=== PATIENT | female | born 1960 | race Caucasian/White ===

== ENCOUNTER → 2016-05-27 | Outpatient (CLI) | payer MEDICAID ==
[~2016-05-27] MED LIST: /ALEN70TA OR; /RISE35TA; BACL10TA2; BACL10TA2 OR; BACL10TA2 PO; CALCTAB22 OR; CIPR500T19; CIPRODEX OS; CYAN1000VL INJ; DIPH2.5L OR; FERR225T PO; FERR324T2 PO; FLAG250T; FLAX100012 PO; LOMO2.5T PO; LYRI75CA OR; MAGNESIUM OXIDE; OPAN10TA16 OR; PENTASA; SLEEP AID PO; SOMA250T; SOMA250T PO; SOMA350T OR; SOMA350T PO; TYLETAB3; TYLETAB3 OR; ULTR300T OR; VICO5TAB OR; VIT D 2000 OR; VITAD1000T PO; VITAMIN B 12 SQ; VITAMIN D 3; ZANA4CAP PO; ZICAM; [UNRECOGNIZED DRUG - CODE] PO; nasacort; omega PO; vit b; vit b12; vitamin b12 SC
--- NOTE | 2016-05-28 00:09 | ECWPNPC ---
PATIENT NAME: MATTY PERSON : 1960 GENDER: FEMALE VISIT DATE: 05/27/2016 DISCHARGE DATE: 05/27/16 1215 VISIT LOCKED DATE TIME: PHYSICIAN: COLIN GRAF RESOURCE: COLIN GRAF REASON FOR APPOINTMENT 1. BACK HISTORY OF PRESENT ILLNESS HISTORY OF PRESENT ILLNESS: PAIN THE PATIENT DESCRIBES THE PAIN... FALL RISK SCREENING: SCREENING :NO FALLS IN THE PAST YEAR TODAY'S VISIT: NOTES: FIRST VISIT BACK TO CLINIC SINCE 11/09. RATES PAIN TODAY 7/10. WORST AREAS TODAY ARE RIGHT WRIST AND NECK AREA. REPORTS PAIN MEDS ARE GENERALLY HELPFUL. HAS BEEN ABLE TO WALK BETTER AND HAS BEEN MORE ACTIVE. HAS HAD NO RECENT FALLS.. CURRENT MEDICATIONS TAKING VITAMIN B-12 1000 MCG INJECTION INJECTION IM TWICE A MONTH TAKING LOMOTIL 2.5-0.025 MG TABLET 4 TABLETS ORALLY TWICE DAILY NEEDED TAKING CALCIUM 600 MG TABLET 1 TABLET ORALLY DAILY TAKING TYLENOL/CODEINE #4 300-60 MG TABLET 1 TABLET NEEDED ORALLY EVERY 4 HRS PRN PAIN MDD=6 TAKING TIZANIDINE HCL 4 MG TABLET 1 TABLET ORALLY EVERY 6 HRS TAKING SOMA 350 MG TABLET 1 TABLET NEEDED ORALLY THREE TIMES DAILY MDD=3 TAKING BACLOFEN 10 MG TABLET 2 TABLET WITH FOOD OR MILK ORALLY 2 IN A.M. , 1 MID MORNING, 1 MID AFTERNOON AND 2 IN P.M. TAKING OXYCODONE HCL 15 MG TABLET 1 TABLET ORALLY EVERY 4 HOURS NEEDED, MAX DAILY DOSE 6 NOT-TAKING GABAPENTIN 100 MG CAPSULE 1 CAP ORALLY BEFORE BEDTIME NOT-TAKING FOSAMAX 70 MG TABLET 1 TABLET ORALLY WEEKLY NOT-TAKING VITAMIN D 2000 UNIT TABLET 1 TABLET ORALLY DAILY NOT-TAKING OXYCODONE HCL 15 MG TABLET 1 TABLET ORALLY EVERY 6 HRS PRN PAIN MDD=4 NOT-TAKING OXYCODONE HCL 15 MG TABLET 1 TABLET ORALLY EVERY 6 HRS PRN PAIN MDD=4 NOT-TAKING OXYCODONE HCL 15 MG TABLET 1 TABLET ORALLY Q 6 HRS PRN PAIN MDD=4 MEDICATION LIST REVIEWED AND RECONCILED WITH THE PATIENT PAST MEDICAL HISTORY CHRONES, SHORTENING OF THE BOWEL ALLERGIES REMICADE: ANAPHYLACTIC SHOCK MP 6: LIVER SHUTS DOWN LATEX: PULLS YOUR SKIN OFF PREDNISONE: SWELLING NEURONTIN: HAIR FALLING OUT PENTASA: HEADACHE GABAPENTIN: HAIR FELL OUT: SIDE EFFECTS SOCIAL HISTORY GENERAL: TOBACCO USE ARE YOU A:NONSMOKER LEARNING BARRIERS / SPECIAL NEEDS ORIENTED TO PLAN OF CARE: PATIENT, PAIN MANAGEMENT PATIENT, ORIENTED TO PLAN OF CARE: PATIENT, PAIN MANAGEMENT PATIENT. NEW PATIENT PAIN DIARY TODAY'S VISITNOTES FROM 0-10, WHAT LEVEL IS YOUR PAIN TODAY?0 PAIN CLINIC PFS, CLERGY, PUBLIC HEALTH REFERRALS PFS REFERRAL NEEDED?NO CLERGY REFERRAL NEEDED?NO PUBLIC HEALTH REFERRAL NEEDED?NO WAS THE PROVIDER NOTIFIED OF ANY PERTINENT INFO?NO PFS REFERRAL NEEDED?NO CLERGY REFERRAL NEEDED?NO PUBLIC HEALTH REFERRAL NEEDED?NO WAS THE PROVIDER NOTIFIED OF ANY PERTINENT INFO?NO REVIEW OF SYSTEMS CONSTITUTIONAL: ANY CHANGE IN YOUR MEDICAL CONDITION? YES NOT TAKING GABAPENTIN--MADE HER HAIR FALL OUT . CHILLS NO . FEVER NO . INFECTION: DO YOU HAVE NEW INFECTIONS? NO . DO YOU HAVE HISTORY OF MRSA? NO . MUSCULOSKELETAL: ANY NEW PATTERNS OF PAIN OR NUMBNESS? NO . GASTROENTEROLOGY: GENERAL WEIGHT STABLE OR HADS GAINED. SAW GASTRO YESTERDAY. . ANY NEW CHANGE IN BOWEL CONTROL? NO . GENITOURINARY: ANY NEW CHANGE IN BLADDER CONTROL? NO . IS THERE A CHANCE YOU COULD BE ? NO . HEMATOLOGY/LYMPH: DO YOU TAKE ANY BLOOD THINNERS? (FOR EXAMPLE- COUMADIN, PLAVIX, AGGRENOX, PLATEL, PRADAXA, OR XARELTO) NO . WHEN WAS YOUR LAST DOSE? DATE: TIME: . NEUROLOGY: HAVE YOU FALLEN IN THE PAST 6 MONTHS? NO . ANY NEW EXTREMITY NUMBNESS OR WEAKNESS? NO . CARDIOLOGY: DO YOU HAVE A PACEMAKER OR DEFIBRILLATOR? NO . RESPIRATORY: HAVE YOU BEEN SICK IN THE PAST WEEK? NO . FEVER NO . FLU LIKE SYMPTOMS? NO . COUGH NO . INTEGUMENTARY: DO YOU HAVE ANY RASHES OR OPEN SORES? NO . ALLERGIC/IMMUNO: ARE YOU ALLERGIC TO SHELLFISH OR IV DYE? NO . ANY NEW ALLERGIES? NO . PSYCHIATRIC: DO YOU HAVE THOUGHTS OF HURTING YOURSELF OR SOMEONE ELSE? NO . ARE YOU ABUSED, NEGLECTED, OR IN AN UNSAFE ENVIRONMENT? NO . ENDOCRINOLOGY: ARE YOU DIABETIC? NO . OTHER: DO YOU NEED ANY PRESCRIPTIONS? NO . IF YES, PLEASE LIST: ____ . ANY NEW PROBLEMS WITH YOUR MEDICATIONS? NO . WHEN DID YOU LAST EAT? ____ . WHEN DID YOU LAST DRINK? ____ . WHAT DID YOU LAST DRINK? ____ . NAME OF PERSON DRIVING YOU HOME? ____ . DO YOU HAVE ANY OTHER QUESTIONS OR CONCERNS YES STOPPED GABAPENTIN DUE TO IT MAKING HER HAIR FALL OUT. . REVIEWED BY: PROVIDER: COLIN NULL . VITAL SIGNS WT 125.8 LBS, HT 66 IN, BMI 20.30 INDEX, BP 146/89 MM HG, HR 85 /MIN, RR 16 /MIN, TEMP 97.1 F, OXYGEN SAT % 96%, NA INITIALS SC 11:27. EXAMINATION GENERAL EXAMINATION: GENERAL APPEARANCE:COLOR PALE. PSYCHALERT , ORIENTED X 3 , APPROPRIATE MOOD AND AFFECT . LUNGS:CLEAR TO AUSCULTATION BILATERALLY - HYPERVENTILATES EASILY. HEART:HEART RATE REGULAR. MUSCULOSKELETAL:TRIGGER POINTS AND TIGHT FIBROUS BANDS OVER CERVICAL PARASPINOUS MUSCLES AND OVER SCAPULA, RIGHT > LEFT. TENDER WITH PALPATION OVER POSTERIOR RIGHT AC JOINT.RESTRICTION IN ROM WITH NECK AND RIGHT SHOULDER MOVEMENT. JOINTS:RIGHT , WRIST TENDER, EDEMATOUS . ASSESSMENTS BILATERAL KNEE PAIN - M25.561 (PRIMARY) LUMBAR POST-LAMINECTOMY SYNDROME - M96.1 OTHER CERVICAL DISC DISPLACEMENT AT C5-C6 LEVEL - M50.222 CHRONIC PRESCRIPTION OPIATE USE - Z79.891 TREATMENT BILATERAL KNEE PAIN NOTES: UTOX TODAY. TO SEE PCP IN FUTURE. CLINICAL NOTES: ISTOP REGISTRY REVIEWED AND DEMNOSTRATES COMPLLIANCE. BRINGS IN MEDICATIONS WHICH IS APPROPRIATE FOR WHAT WAS DISPENSED. RECENT URINE TOXICOLOGY REVIEWED. NO UNAUTHORIZED MEDICATIONS. NO ILLICIT SUBSTANCES AND PRESCRIBED MEDICATIONS WERE PRESENT. PROCEDURE CODES FA211 ESTABILISHED PATIENT [facility] CHARGE DISPOSITION & COMMUNICATION FOLLOW UP [address] KIMBLE (INSURANCE ISSUES) ELECTRONICALLY SIGNED BY NICO RODRÍGUEZ ON 05/27/2016 AT 01:48 PM EST DISCLAIMER : THIS IS A VISIT SUMMARY EXTRACTED FROM THE [email or web address] CHART. IT IS NOT A COPY OF THE [email or web address] PROGRESS NOTE. MTDD
== END ==
LOC: M PAIN 10:40
PROVIDERS: ATTEND Nurse Practitioner Family
DX: Z09 Encounter for follow-up examination after completed treatment for conditions other than malignant neoplasm (principal); G89.29 Other chronic pain; M25.561 Pain in right knee; M96.1 Postlaminectomy syndrome, not elsewhere classified; M50.222 Other cervical disc displacement at C5-C6 level; K50.90 Crohn's disease, unspecified, without complications; Z88.8 Allergy status to other drugs, medicaments and biological substances; Z91.040 Latex allergy status; Z79.891 Long term (current) use of opiate analgesic; Z79.899 Other long term (current) drug therapy

== ENCOUNTER → 2016-08-26 | Outpatient (CLI) | payer MEDICAID ==
--- NOTE | 2016-09-12 00:08 | ECWPNPC ---
PATIENT NAME: MATTY PERSON : 1960 GENDER: FEMALE VISIT DATE: 08/26/2016 DISCHARGE DATE: 08/26/16 1525 VISIT LOCKED DATE TIME: PHYSICIAN: COLIN GRAF RESOURCE: COLIN GRAF REASON FOR APPOINTMENT 1. BACK HISTORY OF PRESENT ILLNESS HISTORY OF PRESENT ILLNESS: PAIN THE PATIENT DESCRIBES THE PAIN... FALL RISK SCREENING: SCREENING :NO FALLS IN THE PAST YEAR GENERAL: HPI RATES PAIN TODAY 5.5/10. IS HAVING SOME PAIN ON LEFT SIDE OF THE NECK. RAINY DAYS AND HUMID WEATHER AFFECT THE JOINTS. ANKLES AND FEET ACHY BUT IMPROVED. CHRON'S IS GENERALLY QUIET AND WEIGHT IS STABLE. REPORTS NO ADVERSE EFFECTS WITH MEDS.. CURRENT MEDICATIONS TAKING VITAMIN B-12 1000 MCG INJECTION INJECTION IM ONCE A MONTH TAKING LOMOTIL 2.5-0.025 MG TABLET 8 TABLETS ORALLY TWICE DAILY NEEDED TAKING CALCIUM 600 MG TABLET 1 TABLET ORALLY DAILY TAKING TYLENOL WITH CODEINE #4 300-60 MG TABLET 1 TABLET NEEDED ORALLY EVERY 4 HRS PRN PAIN MDD=6 TAKING TIZANIDINE HCL 4 MG TABLET 1 TABLET ORALLY EVERY 6 HRS TAKING BACLOFEN 10 MG TABLET 2 TABLET WITH FOOD OR MILK ORALLY 2 IN A.M. , 1 MID MORNING, 1 MID AFTERNOON AND 2 IN P.M. TAKING SOMA 350 MG TABLET 1 TABLET NEEDED ORALLY THREE TIMES DAILY MDD=3 TAKING OXYCODONE HCL 15 MG TABLET 1 TABLET ORALLY EVERY 4 HOURS NEEDED, MAX DAILY DOSE 6 TAKING VITAMIN D (ERGOCALCIFEROL) 47616 UNIT CAPSULE 1 CAPSULE ORALLY ONCE A WEEK TAKING FERROUS SULFATE 1 TABLET ORALLY ONCE A DAY NOT-TAKING GABAPENTIN 100 MG CAPSULE 1 CAP ORALLY BEFORE BEDTIME NOT-TAKING FOSAMAX 70 MG TABLET 1 TABLET ORALLY WEEKLY NOT-TAKING VITAMIN D 2000 UNIT TABLET 1 TABLET ORALLY DAILY NOT-TAKING OXYCODONE HCL 15 MG TABLET 1 TABLET ORALLY EVERY 6 HRS PRN PAIN MDD=4 NOT-TAKING OXYCODONE HCL 15 MG TABLET 1 TABLET ORALLY EVERY 6 HRS PRN PAIN MDD=4 NOT-TAKING OXYCODONE HCL 15 MG TABLET 1 TABLET ORALLY Q 6 HRS PRN PAIN MDD=4 MEDICATION LIST REVIEWED AND RECONCILED WITH THE PATIENT PAST MEDICAL HISTORY CHRONES, SHORTENING OF THE BOWEL CHRONIC PAIN- SEES [facility] PAIN MANAGEMENT ALLERGIES REMICADE: ANAPHYLACTIC SHOCK MP 6: LIVER SHUTS DOWN LATEX: PULLS YOUR SKIN OFF PREDNISONE: SWELLING NEURONTIN: HAIR FALLING OUT PENTASA: HEADACHE GABAPENTIN: HAIR FELL OUT: SIDE EFFECTS SURGICAL HISTORY ABDOMINAL SURGERIES (5) BACK SURGERY KNEE SURGERY (LUMP REMOVED -LEFT KNEE) TONSILLECTOMY SOCIAL HISTORY GENERAL: TOBACCO USE ARE YOU A:NONSMOKER CONGREGATION [id number] DENOMINATIONAL LEARNING BARRIERS / SPECIAL NEEDS ORIENTED TO PLAN OF CARE: PATIENT, PAIN MANAGEMENT PATIENT, ORIENTED TO PLAN OF CARE: PATIENT, PAIN MANAGEMENT PATIENT. NEW PATIENT PAIN DIARY TODAY'S VISITNOTES FROM 0-10, WHAT LEVEL IS YOUR PAIN TODAY?0 PAIN CLINIC PFS, CLERGY, PUBLIC HEALTH REFERRALS PFS REFERRAL NEEDED?NO CLERGY REFERRAL NEEDED?NO PUBLIC HEALTH REFERRAL NEEDED?NO WAS THE PROVIDER NOTIFIED OF ANY PERTINENT INFO?NO PFS REFERRAL NEEDED?NO CLERGY REFERRAL NEEDED?NO PUBLIC HEALTH REFERRAL NEEDED?NO WAS THE PROVIDER NOTIFIED OF ANY PERTINENT INFO?NO ADVANCE DIRECTIVES HEALTH CARE PROXY?YES NAME OF HCP MOE MAK CONTACT # FOR HCP [phone] DO YOU HAVE A COPY WITH YOU? NO - [facility] COPY IN TO HOSPITAL DO YOU HAVE A DNR?NO WOULD YOU LIKE MORE INFORMATION?YES LIVING WILL?NO WOULD YOU LIKE MORE INFORMATION?NO POWER OF INSURANCE COLLECTOR?YES NAME OF POA? SAME HCP HOSPITALIZATION/MAJOR DIAGNOSTIC PROCEDURE SURGERIES REVIEW OF SYSTEMS CONSTITUTIONAL: ANY CHANGE IN YOUR MEDICAL CONDITION? NO . CHILLS NO . FEVER NO . INFECTION: DO YOU HAVE NEW INFECTIONS? NO . DO YOU HAVE HISTORY OF MRSA? NO . MUSCULOSKELETAL: ANY NEW PATTERNS OF PAIN OR NUMBNESS? NO . GASTROENTEROLOGY: ANY NEW CHANGE IN BOWEL CONTROL? INTERMITTANT DIARRHEA - CROHNS DISEASE . GENITOURINARY: ANY NEW CHANGE IN BLADDER CONTROL? NO . IS THERE A CHANCE YOU COULD BE ? NO . HEMATOLOGY/LYMPH: DO YOU TAKE ANY BLOOD THINNERS? (FOR EXAMPLE- COUMADIN, PLAVIX, AGGRENOX, PLATEL, PRADAXA, OR XARELTO) NO . WHEN WAS YOUR LAST DOSE? DATE: TIME: . NEUROLOGY: HAVE YOU FALLEN IN THE PAST 6 MONTHS? NO . ANY NEW EXTREMITY NUMBNESS OR WEAKNESS? NO . CARDIOLOGY: DO YOU HAVE A PACEMAKER OR DEFIBRILLATOR? NO . RESPIRATORY: HAVE YOU BEEN SICK IN THE PAST WEEK? NO . FEVER NO . FLU LIKE SYMPTOMS? NO . COUGH NO . INTEGUMENTARY: DO YOU HAVE ANY RASHES OR OPEN SORES? NO . ALLERGIC/IMMUNO: ARE YOU ALLERGIC TO SHELLFISH OR IV DYE? NO . ANY NEW ALLERGIES? NO . PSYCHIATRIC: DO YOU HAVE THOUGHTS OF HURTING YOURSELF OR SOMEONE ELSE? NO . ARE YOU ABUSED, NEGLECTED, OR IN AN UNSAFE ENVIRONMENT? NO . ENDOCRINOLOGY: ARE YOU DIABETIC? NO . OTHER: DO YOU NEED ANY PRESCRIPTIONS? NO . IF YES, PLEASE LIST: ____ . ANY NEW PROBLEMS WITH YOUR MEDICATIONS? NO . WHEN DID YOU LAST EAT? ____ . WHEN DID YOU LAST DRINK? ____ . WHAT DID YOU LAST DRINK? ____ . NAME OF PERSON DRIVING YOU HOME? ____ . DO YOU HAVE ANY OTHER QUESTIONS OR CONCERNS NO . REVIEWED BY: PROVIDER: COLIN NULL . VITAL SIGNS WT 134.8 LBS, HT 66 IN, BMI 21.75 INDEX, BP 155/79 MM HG, HR 85 /MIN, RR 16 /MIN, TEMP 96.9 F, OXYGEN SAT % 98%, NA INITIALS TL 1338, REVIEWED BY: LS. EXAMINATION GENERAL EXAMINATION: GENERAL APPEARANCE:COLOR PALE. PSYCHALERT , ORIENTED X 3 , APPROPRIATE MOOD AND AFFECT . LUNGS:CLEAR TO AUSCULTATION BILATERALLY - HYPERVENTILATES EASILY. HEART:HEART RATE REGULAR. MUSCULOSKELETAL:TRIGGER POINTS AND TIGHT FIBROUS BANDS OVER CERVICAL PARASPINOUS MUSCLES AND OVER SCAPULA, RIGHT > LEFT. TENDER WITH PALPATION OVER POSTERIOR RIGHT AC JOINT.RESTRICTION IN ROM WITH NECK AND RIGHT SHOULDER MOVEMENT. RISES EASILY TO STANDING POSITION. POSTURE UPRIGHT. GAIT SLOW, NON ANTALGIC. STILL WITH DIFFICULTY WITH BALANCE. ASSESSMENTS LUMBAR POST-LAMINECTOMY SYNDROME - M96.1 (PRIMARY) OTHER CERVICAL DISC DISPLACEMENT AT C5-C6 LEVEL - M50.222 CHRONIC PRESCRIPTION OPIATE USE - Z79.891 TREATMENT LUMBAR POST-LAMINECTOMY SYNDROME NOTES: CONTINUE CURRENT MEDS. MUST BRING TO EVERY VISIT. CLINICAL NOTES: ISTOP REGISTRY REVIEWED AND DEMNOSTRATES COMPLLIANCE. DID NOT BRINGS IN MEDICATIONS. RECENT URINE TOXICOLOGY REVIEWED. NO UNAUTHORIZED MEDICATIONS. NO ILLICIT SUBSTANCES AND PRESCRIBED MEDICATIONS WERE PRESENT. PROCEDURE CODES FA211 ESTABILISHED PATIENT [facility] CHARGE DISPOSITION & COMMUNICATION FOLLOW UP 3 MONTHS (REASON: JOINT PAIN, BACK PAIN) ELECTRONICALLY SIGNED BY NICO RODRÍGUEZ ON 09/11/2016 AT 03:50 PM EDT DISCLAIMER : THIS IS A VISIT SUMMARY EXTRACTED FROM THE [employer] CHART. IT IS NOT A COPY OF THE [employer] PROGRESS NOTE. GRAHAM
== END ==
LOC: M PAIN 13:20
PROVIDERS: ATTEND Anesthesiology
DX: M96.1 Postlaminectomy syndrome, not elsewhere classified (principal); M50.222 Other cervical disc displacement at C5-C6 level; Z79.891 Long term (current) use of opiate analgesic; Z79.2 Long term (current) use of antibiotics; Z79.899 Other long term (current) drug therapy; Z88.8 Allergy status to other drugs, medicaments and biological substances; Z88.6 Allergy status to analgesic agent

== ENCOUNTER → 2016-12-09 | Outpatient (CLI) | payer MEDICAID, OTHER ==
--- NOTE | 2016-12-13 02:32 | ECWPNPC ---
PATIENT NAME: MATTY PERSON : 1960 GENDER: FEMALE VISIT DATE: 12/09/2016 DISCHARGE DATE: 12/09/16 1145 VISIT LOCKED DATE TIME: PHYSICIAN: COLIN GRAF RESOURCE: COLIN GRAF REASON FOR APPOINTMENT 1. JOINT PAIN, BACK PAIN HISTORY OF PRESENT ILLNESS FALL RISK SCREENING: SCREENING :NO FALLS IN THE PAST YEAR PAIN SCREENING: PATIENT HAS A COMPLAINT OF ACUTE OR CHRONIC PAIN :YES TODAY'S VISIT: NOTES: RATES PAIN TODAY 6-7/10. DESCRIBES PAIN ACHING, BURNING, SHARP SORE STABBING. HAS BEEN NOTING BURNING PAIN RADIATING INTO 1ST AND 2 ND FINGERS BOTH HANDS . THIS WILL AWAKEN HER FROM SLEEP. . CURRENT MEDICATIONS TAKING VITAMIN B-12 1000 MCG INJECTION INJECTION IM ONCE A MONTH TAKING LOMOTIL 2.5-0.025 MG TABLET 8 TABLETS ORALLY TWICE DAILY NEEDED TAKING CALCIUM 600 MG TABLET 1 TABLET ORALLY DAILY TAKING VITAMIN D (ERGOCALCIFEROL) 48859 UNIT CAPSULE 1 CAPSULE ORALLY ONCE A WEEK TAKING FERROUS SULFATE 1 TABLET ORALLY ONCE A DAY TAKING TYLENOL WITH CODEINE #4 300-60 MG TABLET 1 TABLET NEEDED ORALLY EVERY 4 HRS PRN PAIN MDD=6 TAKING BACLOFEN 10 MG TABLET 2 TABLET WITH FOOD OR MILK ORALLY 2 IN A.M. , 1 MID MORNING, 1 MID AFTERNOON AND 2 IN P.M. TAKING TIZANIDINE HCL 4 MG TABLET 1 TABLET ORALLY EVERY 6 HRS TAKING SOMA 350 MG TABLET 1 TABLET NEEDED ORALLY THREE TIMES DAILY MDD=3 TAKING OXYCODONE HCL 15 MG TABLET 1 TABLET ORALLY EVERY 4 HOURS NEEDED, MAX DAILY DOSE 6 NOT-TAKING GABAPENTIN 100 MG CAPSULE 1 CAP ORALLY BEFORE BEDTIME NOT-TAKING FOSAMAX 70 MG TABLET 1 TABLET ORALLY WEEKLY NOT-TAKING VITAMIN D 2000 UNIT TABLET 1 TABLET ORALLY DAILY NOT-TAKING OXYCODONE HCL 15 MG TABLET 1 TABLET ORALLY EVERY 6 HRS PRN PAIN MDD=4 NOT-TAKING OXYCODONE HCL 15 MG TABLET 1 TABLET ORALLY EVERY 6 HRS PRN PAIN MDD=4 NOT-TAKING OXYCODONE HCL 15 MG TABLET 1 TABLET ORALLY Q 6 HRS PRN PAIN MDD=4 MEDICATION LIST REVIEWED AND RECONCILED WITH THE PATIENT PAST MEDICAL HISTORY CHRONES, SHORTENING OF THE BOWEL CHRONIC PAIN- SEES [facility] PAIN MANAGEMENT ALLERGIES REMICADE: ANAPHYLACTIC SHOCK MP 6: LIVER SHUTS DOWN LATEX: PULLS YOUR SKIN OFF PREDNISONE: SWELLING NEURONTIN: HAIR FALLING OUT PENTASA: HEADACHE GABAPENTIN: HAIR FELL OUT: SIDE EFFECTS SOCIAL HISTORY GENERAL: TOBACCO USE ARE YOU A:NONSMOKER CAFFEINE CAFFEINE USE?YES HOW OFTEN AND HOW MUCH? 1-2 CUPS PER DAY ORTHODOXY [id number] MU-ISM LEARNING BARRIERS / SPECIAL NEEDS ORIENTED TO PLAN OF CARE: PATIENT, PAIN MANAGEMENT PATIENT, ORIENTED TO PLAN OF CARE: PATIENT, PAIN MANAGEMENT PATIENT. NEW PATIENT PAIN DIARY TODAY'S VISITNOTES FROM 0-10, WHAT LEVEL IS YOUR PAIN TODAY?0 PAIN CLINIC PFS, CLERGY, PUBLIC HEALTH REFERRALS PFS REFERRAL NEEDED?NO CLERGY REFERRAL NEEDED?NO PUBLIC HEALTH REFERRAL NEEDED?NO WAS THE PROVIDER NOTIFIED OF ANY PERTINENT INFO?YES HAS THE PATIENT BEEN EDUCATED REGARDING HIS/HER PLAN OF CARE?YES HAS THE PATIENT BEEN EDUCATED REGARDING PAIN, THE RISK FOR PAIN, THE IMPORTANCE OF EFFECTIVE PAIN MANAGEMENT, AND THE PAIN ASSESSMENT PROCESS?YES REVIEWED BY: EDGAR. ADVANCE DIRECTIVES HEALTH CARE PROXY?YES NAME OF HCP MOE MAK CONTACT # FOR HCP [phone] DO YOU HAVE A COPY WITH YOU? NO - [facility] HAS ALREAD[facility] BROUGHT COPY IN TO HOSPITAL DO YOU HAVE A DNR?NO WOULD YOU LIKE MORE INFORMATION?YES LIVING WILL?NO WOULD YOU LIKE MORE INFORMATION?NO POWER OF WINDOWS SYSTEMS ADMINISTRATOR?YES NAME OF POA? SAME HCP REVIEW OF SYSTEMS REVIEWED BY: PROVIDER: . CONSTITUTIONAL: ANY CHANGE IN YOUR MEDICAL CONDITION? NO . CHILLS NO . FEVER NO . INFECTION: DO YOU HAVE NEW INFECTIONS? NO . DO YOU HAVE HISTORY OF MRSA? NO . MUSCULOSKELETAL: ANY NEW PATTERNS OF PAIN OR NUMBNESS? YES, LEFT AND RIGHT MIDDLE KNUCKLES ARE THROBBING AND BURNING, STARTED ABOUT 2 MONTHS AGO. . SYTEMIC LUPUS NO . GASTROENTEROLOGY: GENERAL CROHN'S CURRENT QUIET - NO BLOOD IN STOOL . ANY NEW CHANGE IN BOWEL CONTROL? NO . BARRETTS ESOPHAGUS NO . CIRRHOSIS NO . HEPATITIS NO . LIVER FAILURE NO . ACID REFLUX NO . UNEXPLAINED WEIGHT LOSS NO . GENITOURINARY: ANY NEW CHANGE IN BLADDER CONTROL? NO . IS THERE A CHANCE YOU COULD BE ? NO . HEMATOLOGY/LYMPH: DO YOU TAKE ANY BLOOD THINNERS? (FOR EXAMPLE- COUMADIN, PLAVIX, AGGRENOX, PLATEL, PRADAXA, OR XARELTO) NO . WHEN WAS YOUR LAST DOSE? DATE: TIME: . LOW PLATELET COUNT NO . SICKLE CELL DISEASE NO . VON WILLIEBRANDS NO . FACTOR V LEIDEN NO . THALLASEMIA NO . ANEMIA NO . EASY BRUISING NO . NEUROLOGY: HAVE YOU FALLEN IN THE PAST 6 MONTHS? NO . ANY NEW EXTREMITY NUMBNESS OR WEAKNESS? NO . HEAD INJURY NO . DEMENTIA NO . CEREBRAL PALSY NO . MULTIPLE SCLEROSIS NO . DIZZINESS NO . HEADACHE NO . STROKES NO . VERTIGO NO . CARDIOLOGY: DO YOU HAVE A PACEMAKER OR DEFIBRILLATOR? NO . ANGINA NO . HEART ATTACK NO . HEART SURGERY NO . CONGESTIVE HEART FAILURE/FLUID OVERLOAD NO . CHEST PAIN NO . HIGH BLOOD PRESSURE NO . IRREGULAR HEART BEAT NO . RESPIRATORY: HAVE YOU BEEN SICK IN THE PAST WEEK? NO . FEVER NO . FLU LIKE SYMPTOMS? NO . CPAP NO . BYPAP NO . ASTHMA NO . EMPHYSEMA NO . CHRONIC LUNG DISEASES NO . SHORTNESS OF BREATH ON EXERTION NO . COUGH NO . SNORING NO . INTEGUMENTARY: DO YOU HAVE ANY RASHES OR OPEN SORES? NO . ALLERGIC/IMMUNO: ARE YOU ALLERGIC TO SHELLFISH OR IV DYE? NO . ANY NEW ALLERGIES? NO . PSYCHIATRIC: DO YOU HAVE THOUGHTS OF HURTING YOURSELF OR SOMEONE ELSE? NO . ARE YOU ABUSED, NEGLECTED, OR IN AN UNSAFE ENVIRONMENT? NO . ENDOCRINOLOGY: ARE YOU DIABETIC? NO . THYROID DISORDER NO . OTHER: DO YOU NEED ANY PRESCRIPTIONS? NO . IF YES, PLEASE LIST: ____ . ANY NEW PROBLEMS WITH YOUR MEDICATIONS? NO . WHEN DID YOU LAST EAT? ____ . WHEN DID YOU LAST DRINK? ____ . WHAT DID YOU LAST DRINK? ____ . NAME OF PERSON DRIVING YOU HOME? ____ . DO YOU HAVE ANY OTHER QUESTIONS OR CONCERNS NO . VITAL SIGNS WT 127 LBS, HT 66 IN, BMI 20.50 INDEX, BP 127/65 MM HG, HR 90 /MIN, RR 16 /MIN, TEMP 98.0 F, OXYGEN SAT % 100%, SAFE IN ENV? (Y/N) Y, NA INITIALS IL 11:19, REVIEWED BY: EDGAR. EXAMINATION GENERAL EXAMINATION: GENERAL APPEARANCE:COLOR PINK, SKIN WARM AND DRY. PSYCHALERT , ORIENTED X 3 , APPROPRIATE MOOD AND AFFECT . LUNGS:CLEAR TO AUSCULTATION BILATERALLY - HYPERVENTILATES EASILY. HEART:HEART RATE REGULAR. MUSCULOSKELETAL:TRIGGER POINTS AND TIGHT FIBROUS BANDS OVER CERVICAL PARASPINOUS MUSCLES AND OVER SCAPULA, RIGHT > LEFT. TENDER WITH PALPATION OVER POSTERIOR RIGHT AC JOINT.RESTRICTION IN ROM WITH NECK AND RIGHT SHOULDER MOVEMENT. RISES EASILY TO STANDING POSITION. POSTURE UPRIGHT. GAIT SLOW, NON ANTALGIC. STILL WITH DIFFICULTY WITH BALANCE. ASSESSMENTS LUMBAR POST-LAMINECTOMY SYNDROME - M96.1 (PRIMARY) OTHER CERVICAL DISC DISPLACEMENT AT C5-C6 LEVEL - M50.222 CHRONIC PRESCRIPTION OPIATE USE - Z79.891 TREATMENT LUMBAR POST-LAMINECTOMY SYNDROME REFILL TYLENOL WITH CODEINE #4 TABLET, 300-60 MG, 1 TABLET NEEDED, ORALLY, EVERY 6 HRS PRN PAIN MDD=4, 30 DAY(S), 120, REFILLS 4 REFILL OXYCODONE HCL TABLET, 20 MG, 1 TABLET, ORALLY, EVERY 4 HOURS NEEDED, MAX DAILY DOSE 5, 30 DAY(S), 150, REFILLS 0 REFILL SOMA TABLET, 350 MG, 1 TABLET NEEDED, ORALLY, FOUR TIMES DAILY, 30 DAY(S), 120, REFILLS 2 NOTES: KEEP ACTIVE POSSIBLE. WILL TYLENOL WITH CODEINE AND INCREASE OXYCODONE AND SOMA. PT UNDERSTANDS SHE WILL HAVE TO PAY OUT OF POCKET FOR THIS. PROCEDURE CODES FA211 ESTABILISHED PATIENT [facility] CHARGE DISPOSITION & COMMUNICATION FOLLOW UP 3 MONTHS (REASON: NECK/BACK PAIN) ELECTRONICALLY SIGNED BY NICO RODRÍGUEZ ON 12/12/2016 AT 05:54 PM EDT DISCLAIMER : THIS IS A VISIT SUMMARY EXTRACTED FROM THE [employer] CHART. IT IS NOT A COPY OF THE [employer] PROGRESS NOTE. GRAHAM
== END ==
LOC: M PAIN 10:00
PROVIDERS: ATTEND Nurse Practitioner Family
DX: M96.1 Postlaminectomy syndrome, not elsewhere classified (principal); M50.222 Other cervical disc displacement at C5-C6 level; Z79.891 Long term (current) use of opiate analgesic; Z79.899 Other long term (current) drug therapy; Z88.8 Allergy status to other drugs, medicaments and biological substances

== ENCOUNTER → 2017-04-06 | Outpatient (CLI) | payer OTHER, MEDICAID | LOC: M PAIN 10:15 | DX: M96.1 Postlaminectomy syndrome, not elsewhere classified (principal); M50.222 Other cervical disc displacement at C5-C6 level; K50.90 Crohn's disease, unspecified, without complications; Z79.891 Long term (current) use of opiate analgesic; Z79.899 Other long term (current) drug therapy; Z88.8 Allergy status to other drugs, medicaments and biological substances; Z91.040 Latex allergy status | CPT/HCPCS: G0463 ==

== ENCOUNTER → 2017-07-05 | Outpatient (CLI) | payer OTHER, MEDICAID | LOC: M PAIN 10:30 | DX: M96.1 Postlaminectomy syndrome, not elsewhere classified (principal); M25.561 Pain in right knee; Z79.891 Long term (current) use of opiate analgesic; Z79.899 Other long term (current) drug therapy; Z88.8 Allergy status to other drugs, medicaments and biological substances; Z91.040 Latex allergy status | CPT/HCPCS: G0463 ==

== ENCOUNTER → 2017-08-08 | Outpatient (CLI) | payer OTHER, MEDICAID | LOC: M RAD 14:20 | DX: M79.605 Pain in left leg (principal) | CPT/HCPCS: 73590 ==

== ENCOUNTER → 2017-10-12 | Outpatient (CLI) | payer OTHER, MEDICAID | LOC: M PAIN 10:45 | DX: M79.605 Pain in left leg (principal); M50.222 Other cervical disc displacement at C5-C6 level; M79.1 Myalgia; Z79.891 Long term (current) use of opiate analgesic; Z79.899 Other long term (current) drug therapy; Z88.8 Allergy status to other drugs, medicaments and biological substances; Z91.040 Latex allergy status; Z87.19 Personal history of other diseases of the digestive system | CPT/HCPCS: G0463 ==

== ENCOUNTER → 2017-11-01 | Outpatient (CLI) | payer OTHER ==
[~2017-11-01] MED LIST changes: -/ALEN70TA OR; -/RISE35TA; -BACL10TA2; -BACL10TA2 OR; -BACL10TA2 PO; -CALCTAB22 OR; -CIPR500T19; -CIPRODEX OS; -CYAN1000VL INJ; -DIPH2.5L OR; -FERR225T PO; -FERR324T2 PO; -FLAG250T; -FLAX100012 PO; +ISOVUE-370 76% 100ML VIAL (Q9967) As Ordered; -LOMO2.5T PO; -LYRI75CA OR; -MAGNESIUM OXIDE; -OPAN10TA16 OR; -PENTASA; -SLEEP AID PO; -SOMA250T; -SOMA250T PO; -SOMA350T OR; -SOMA350T PO; -TYLETAB3; -TYLETAB3 OR; -ULTR300T OR; -VICO5TAB OR; -VIT D 2000 OR; -VITAD1000T PO; -VITAMIN B 12 SQ; -VITAMIN D 3; -ZANA4CAP PO; -ZICAM; -[UNRECOGNIZED DRUG - CODE] PO; -nasacort; -omega PO; -vit b; -vit b12; -vitamin b12 SC
== END ==
LOC: M RAD 13:57
DX: M79.605 Pain in left leg (principal); M85.872 Other specified disorders of bone density and structure, left ankle and foot
CPT/HCPCS: Q9967

== ENCOUNTER → 2018-01-12 | Outpatient (CLI) | payer OTHER, MEDICAID | LOC: M PAIN 09:30 | DX: M25.561 Pain in right knee (principal); M96.1 Postlaminectomy syndrome, not elsewhere classified; Z79.899 Other long term (current) drug therapy; Z88.8 Allergy status to other drugs, medicaments and biological substances; Z91.040 Latex allergy status; Z87.19 Personal history of other diseases of the digestive system | CPT/HCPCS: G0463 ==

== ENCOUNTER → 2018-06-22 | Outpatient (CLI) | payer OTHER, MEDICAID ==
[~2018-06-22] MED LIST changes: +/ALEN70TA OR; +/RISE35TA; +BACL10TA2; +BACL10TA2 OR; +BACL10TA2 PO; +CALCTAB22 OR; +CIPR500T19; +CIPRODEX OS; +CYAN1000VL INJ; +DIPH2.5L OR; +FERR225T PO; +FERR324T2 PO; +FLAG250T; +FLAX100012 PO; -ISOVUE-370 76% 100ML VIAL (Q9967) As Ordered; +LOMO2.5T PO; +LYRI75CA OR; +MAGNESIUM OXIDE; +OPAN10TA16 OR; +PENTASA; +SLEEP AID PO; +SOMA250T; +SOMA250T PO; +SOMA350T OR; +SOMA350T PO; +TYLETAB3; +TYLETAB3 OR; +ULTR300T OR; +VICO5TAB OR; +VIT D 2000 OR; +VITAD1000T PO; +VITAMIN B 12 SQ; +VITAMIN D 3; +ZANA4CAP PO; +ZICAM; +[UNRECOGNIZED DRUG - CODE] PO; +nasacort; +omega PO; +vit b; +vit b12; +vitamin b12 SC
--- NOTE | 2018-07-04 01:55 | ECWPNPC ---
PATIENT NAME: MATTY PEROSN : 1960 GENDER: FEMALE VISIT DATE: 06/22/2018 DISCHARGE DATE: 06/22/18 1122 VISIT LOCKED DATE TIME: PHYSICIAN: VINI LOO PHYSICIAN PAGER NO: INACTIVE RESOURCE: VINI LOO REASON FOR APPOINTMENT 1. NECK/JOINT PAIN HISTORY OF PRESENT ILLNESS HISTORY OF PRESENT ILLNESS: HERE FOR F/U AND MEDICINE MANAGEMENT OF CHRONIC GENERALIZED BACK PAIN WITH HISTORY OF CHRONHS ARTHROPATHY.RATING PAIN VAS 5/10.FINDS CURRENT CHRONIC PAIN MEDICATION EFFECRIVE AT REDUCING PAIN AND KEEPING HER COMFORTABLE.DENIES SIDE EFFECTS. PAIN THE PATIENT DESCRIBES THE PAIN... FALL RISK SCREENING: SCREENING :NO FALLS REPORTED IN THE LAST YEAR CURRENT MEDICATIONS TAKING VITAMIN B-12 1000 MCG INJECTION INJECTION IM ONCE A MONTH, NOTES: 06/08/18 TAKING LOMOTIL 2.5-0.025 MG TABLET 8 TABLETS ORALLY TWICE DAILY NEEDED, NOTES: HASN'T TAKEN ANY LATELY TAKING VITAMIN D (ERGOCALCIFEROL) 69629 UNIT CAPSULE 1 CAPSULE ORALLY ONCE A WEEK TAKING TIZANIDINE HCL 4 MG TABLET 1 TABLET ORALLY EVERY 6 HRS TAKING TYLENOL WITH CODEINE #4 300-60 MG TABLET 1 TABLET NEEDED ORALLY EVERY 6 HRS PRN PAIN MDD=4 TAKING SOMA 350 MG TABLET 1 TABLET NEEDED ORALLY FOUR TIMES DAILY TAKING OXYCODONE HCL 20 MG TABLET 1 TABLET ORALLY EVERY 4 HOURS NEEDED, MAX DAILY DOSE 5 TAKING BACLOFEN 20 MG TABLET DIRECTED ORALLY 1 AT AM, 1/2 MID AM, 1/2 MID AFTERNOON, 1 AT BEDTIME TAKING MULTI COMPLETE - CAPSULE DIRECTED ORALLY NOT-TAKING CALCIUM 600 MG TABLET 1 TABLET ORALLY DAILY NOT-TAKING FERROUS SULFATE 1 TABLET ORALLY ONCE A DAY MEDICATION LIST REVIEWED AND RECONCILED WITH THE PATIENT PAST MEDICAL HISTORY CHRONES, SHORTENING OF THE BOWEL CHRONIC PAIN- SEES [facility] PAIN MANAGEMENT ALLERGIES REMICADE: ANAPHYLACTIC SHOCK MP 6: LIVER SHUTS DOWN LATEX: PULLS YOUR SKIN OFF PREDNISONE: SWELLING NEURONTIN: HAIR FALLING OUT PENTASA: HEADACHE GABAPENTIN: HAIR FELL OUT - SIDE EFFECTS - ONSET DATE 06/22/2018 SURGICAL HISTORY ABDOMINAL SURGERIES (5) BACK SURGERY KNEE SURGERY (LUMP REMOVED -LEFT KNEE) TONSILLECTOMY FAMILY HISTORY FATHER: , DIAGNOSED WITH CANCER MOTHER: , CANCER 3 BROTHER(S) , 3 SISTER(S) - HEALTHY. FATHER - OAT CELL CARCINOMA, MOTHER - LIVER CANCER, SISTER - OF [place]. SOCIAL HISTORY GENERAL: TOBACCO USE ARE YOU A: NONSMOKER . LATEX QUESTIONNAIRE LATEX ALLERGY : HAVE YOU EVER DEVELOPED ANY TYPE OF REACTION AFTER HANDLING LATEX PRODUCTS SUCH RUBBER GLOVES, CONDOMS, DIAPHRAGMS, BALLOONS, SOCKS, OR UNDERWEAR?YES LATEX ALLERGY : HAVE YOU EVER DEVELOPED ANY TYPE OF REACTION DURING OR AFTER DENTAL APPOINTMENT, VAGINAL/RECTAL EXAMINATION, SURGICAL PROCEDURE, OR ANY OTHER EXPOSURE?NO LATEX RISK : HAVE YOU EVER HAD ANY DIFFICULTY BREATHING OR HIVES AFTER EATING OR HANDLING ANY FRUITS, OR VEGETABLES; SUCH KIWI, BANANAS, STONE FRUITS, OR CHESTNUTSNO LATEX RISK : DO YOU HAVE A PREVIOUS PERSONAL HISTORY OF MORE THAN NINE SURGERIES, SPINA BIFIDA, OR REPEATED CATHERTIZATIONS? NO LATEX RISK : ARE YOU FREQUENTLY EXPOSED TO LATEX PRODUCTS IN YOUR OCCUPATION?NO DATE ASKED : 06/22/2018 ALCOHOL SCREENING DID YOU HAVE A DRINK CONTAINING ALCOHOL IN THE PAST YEAR?NO POINTS0 INTERPRETATIONNEGATIVE RECREATIONAL DRUG USE DRUG USE?NO CAFFEINE CAFFEINE USE?YES HOW OFTEN AND HOW MUCH? 1-2 CUPS PER DAY CHEONDOISM [id number] LATTER DAY LANGUAGE LANGUAGES SPOKEN:[place] LEARNING BARRIERS / SPECIAL NEEDS ORIENTED TO PLAN OF CARE: PATIENT, PAIN MANAGEMENT PATIENT, ORIENTED TO PLAN OF CARE: PATIENT, PAIN MANAGEMENT PATIENT. DIET: REGULAR. EXERCISE: WALKS, , DAILY. NEW PATIENT PAIN DIARY FROM 0-10, WHAT LEVEL IS YOUR PAIN TODAY?5.5 PAIN CLINIC PFS, CLERGY, PUBLIC HEALTH REFERRALS PFS REFERRAL NEEDED?NO CLERGY REFERRAL NEEDED?NO PUBLIC HEALTH REFERRAL NEEDED?NO WAS THE PROVIDER NOTIFIED OF ANY PERTINENT INFO?YES HAS THE PATIENT BEEN EDUCATED REGARDING HIS/HER PLAN OF CARE?YES HAS THE PATIENT BEEN EDUCATED REGARDING PAIN, THE RISK FOR PAIN, THE IMPORTANCE OF EFFECTIVE PAIN MANAGEMENT, AND THE PAIN ASSESSMENT PROCESS?YES ADVANCE DIRECTIVE HEALTH CARE PROXY? YES, NAME OF HCP MOE MAK, CONTACT # FOR HCP [phone], DO YOU HAVE A COPY WITH YOU? NO - STATES HAS ALREADY BROUGHT COPY IN TO HOSPITAL, DO YOU HAVE A DNR? NO, WOULD YOU LIKE MORE INFORMATION? YES, LIVING WILL? NO, WOULD YOU LIKE MORE INFORMATION? 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 SAME HCP. REVIEWED WITH PATIENT 01/12/18 [id number] JSREVIEWED WITH PT 3/29/19 1028 BV. HOSPITALIZATION/MAJOR DIAGNOSTIC PROCEDURE SURGERIES REVIEW OF SYSTEMS REVIEWED BY: PROVIDER: VINI NULL . CONSTITUTIONAL: ANY CHANGE IN YOUR MEDICAL CONDITION? NO . CHILLS NO . FEVER NO . INFECTION: DO YOU HAVE NEW INFECTIONS? NO . DO YOU HAVE HISTORY OF MRSA? NO . MUSCULOSKELETAL: ANY NEW PATTERNS OF PAIN OR NUMBNESS? YES, PT COMPAINS OF INCREASING DIFFICULTY TURNING HEAD SIDE TO SIDE OVER THE PAST 4-5 MONTHS . GASTROENTEROLOGY: ANY NEW CHANGE IN BOWEL CONTROL? YES, PT COMPLAINS OF INCREASING FREQUENCY OF LOOSE BOWELS OVER THE PAST 1-2 WEEKS. . GENITOURINARY: ANY NEW CHANGE IN BLADDER CONTROL? NO . IS THERE A CHANCE YOU COULD BE ? NO . HEMATOLOGY/LYMPH: DO YOU TAKE ANY BLOOD THINNERS? (FOR EXAMPLE- COUMADIN, PLAVIX, AGGRENOX, PLATEL, PRADAXA, OR XARELTO) NO . WHEN WAS YOUR LAST DOSE? DATE: TIME: . NEUROLOGY: HAVE YOU FALLEN IN THE PAST 12 MONTHS? YES, PT REPORTS FALL AT HOME, DOES NOT RECALL HOW LONG AGO, STATES "IT WAS AWHILE AGO". DENIES ANY INJURIES OR ED VISIT WITH ANY FALL. . ANY NEW EXTREMITY NUMBNESS OR WEAKNESS? NO . CARDIOLOGY: DO YOU HAVE A PACEMAKER OR DEFIBRILLATOR? NO . RESPIRATORY: HAVE YOU BEEN SICK IN THE PAST WEEK? YES, PT REPORTS HAVING SEVERE VOMITING ABOUT A WEEK AGO DUE TO SEVERE MIGRAINE. DENIES ANY FEVER OR COUGH. . FEVER NO . FLU LIKE SYMPTOMS? NO . COUGH NO . INTEGUMENTARY: DO YOU HAVE ANY RASHES OR OPEN SORES? NO . ALLERGIC/IMMUNO: ARE YOU ALLERGIC TO IV DYE? NO . ANY NEW ALLERGIES? NO . PSYCHIATRIC: DO YOU HAVE THOUGHTS OF HURTING YOURSELF OR SOMEONE ELSE? NO . ARE YOU ABUSED, NEGLECTED, OR IN AN UNSAFE ENVIRONMENT? NO . ENDOCRINOLOGY: ARE YOU DIABETIC? NO . OTHER: DO YOU NEED ANY PRESCRIPTIONS? NO . IF YES, PLEASE LIST: ____ . ANY NEW PROBLEMS WITH YOUR MEDICATIONS? NO . WHEN DID YOU LAST EAT? ____ . WHEN DID YOU LAST DRINK? ____ . WHAT DID YOU LAST DRINK? ____ . NAME OF PERSON DRIVING YOU HOME? ____ . DO YOU HAVE ANY OTHER QUESTIONS OR CONCERNS NO . VITAL SIGNS WT 130.2 LBS, HT 66 IN, BMI 21.01 INDEX, BP 162/80 MM HG, HR 106 /MIN, RR 18 /MIN, TEMP 97.6 F, OXYGEN SAT % 92%, NA INITIALS SC 10:24, REVIEWED BY: BV. EXAMINATION GENERAL EXAMINATION: GENERAL APPEARANCE:AWAKE,ALERT ,PLEAASANT . PSYCHAFFECT NORMAL . LUNGS:LUNG BENJAMIN ARE CLEAR TO AUSCULTATION BILATERALLY. GOOD MOVEMENT OF AIR . HEART:S1, S2 IN A REGULAR RATE AND RHYTHM. NO SIGNIFICANT MURMURS, RUBS OR GALLOPS NOTED . ASSESSMENTS LUMBAR POST-LAMINECTOMY SYNDROME - M96.1 (PRIMARY) BILATERAL KNEE PAIN - M25.561 TREATMENT LUMBAR POST-LAMINECTOMY SYNDROME CONTINUE OXYCODONE HCL TABLET, 20 MG, 1 TABLET, ORALLY, EVERY 4 HOURS NEEDED, MAX DAILY DOSE 5 CONTINUE TIZANIDINE HCL TABLET, 4 MG, 1 TABLET, ORALLY, EVERY 6 HRS CONTINUE SOMA TABLET, 350 MG, 1 TABLET NEEDED, ORALLY, FOUR TIMES DAILY NOTES: ISTOP REGISTRY REVIEWED AND DEMONSTRATES COMPLLIANCE. BRINGS IN MEDICATIONS WHICH IS APPROPRIATE FOR WHAT WAS DISPENSED. RECENT URINE TOXICOLOGY REVIEWED. NO UNAUTHORIZED MEDICATIONS. NO ILLICIT SUBSTANCES AND PRESCRIBED MEDICATIONS WERE PRESENT. , RISKS AND BENEFITS OF NARCOTIC/OPIOD MEDICATIONS WERE REVIEWED WITH PATIENT - THIS INCLUDES BUT IS NOT LIMITED TO RISK OF DEPENDANCE/DEVELOPMENT OF ADDICTION, MOOD DISTURBANCE AND DEPRESSION, OSTEOPOROSIS, HORMONAL AND LABIDAL CHANGES, RESPIRATORY DEPRESSION AND . PATIENT IS ADVISED NOT TO DRIVE OR DRINK ALCOHOL WHILE ON THESE MEDICATIONS. PROCEDURE CODES FA211 ESTABILISHED PATIENT [facility] CHARGE DISPOSITION & COMMUNICATION FOLLOW UP 3 MONTHS ELECTRONICALLY SIGNED BY TENNILLE PRICE ON 07/03/2018 AT 11:15 AM EDT DISCLAIMER : THIS IS A VISIT SUMMARY EXTRACTED FROM THE [employer] CHART. IT IS NOT A COPY OF THE [employer] PROGRESS NOTE. GRAHAM
== END ==
LOC: M PAIN 10:00
PROVIDERS: ATTEND Nurse Practitioner Family
DX: G89.29 Other chronic pain (principal); M96.1 Postlaminectomy syndrome, not elsewhere classified; M25.561 Pain in right knee; Z79.891 Long term (current) use of opiate analgesic; Z79.899 Other long term (current) drug therapy; Z88.8 Allergy status to other drugs, medicaments and biological substances; Z91.040 Latex allergy status

== ENCOUNTER → 2018-09-17 | Outpatient (CLI) | payer OTHER ==
--- NOTE | 2018-09-18 09:52 | DEXA ---
AP SPINE L1 - L4 1.020 -1.4 -0.5 LT FEMUR TOTAL 0.732 -2.2 -1.5 LT NECK 0.777 -1.9 -0.8 RT FEMUR TOTAL 0.715 -2.3 -1.6 RT NECK 0.792 -1.8 -0.7 TOTAL BODY TOTAL OTHER COMMENTS: There is low bone density of the spine and hips. FOLLOW-UP: Recommendation for the next bone density exam: 2 years. GRAHAM
== END ==
LOC: M WHC 10:47
PROVIDERS: ATTEND Internal Medicine Gastroenterology
DX: M81.0 Age-related osteoporosis without current pathological fracture (principal)

== ENCOUNTER → 2018-10-04 | Outpatient (CLI) | payer OTHER, MEDICAID ==
--- NOTE | 2018-10-16 00:32 | ECWPNPC ---
PATIENT NAME: MATTY PERSON : 1960 GENDER: FEMALE VISIT DATE: 10/04/2018 DISCHARGE DATE: 10/04/18 1350 VISIT LOCKED DATE TIME: PHYSICIAN: VINI LOO PHYSICIAN PAGER NO: INACTIVE RESOURCE: VINI LOO REASON FOR APPOINTMENT 1. NECK/JOINT PAIN HISTORY OF PRESENT ILLNESS HISTORY OF PRESENT ILLNESS: HERE FOR F/U AND MEDICINE MANAGEMENT OF CHRONIC GENERALIZED BACK PAIN WITH HISTORY OF CHRONHS ARTHROPATHY.RATING PAIN VAS 5/10.FINDS CURRENT CHRONIC PAIN MEDICATION EFFECRIVE AT REDUCING PAIN AND KEEPING HER COMFORTABLE.DENIES SIDE EFFECTS. PAIN THE PATIENT DESCRIBES THE PAIN... THE PATIENT DESCRIBES THE PAIN... PAIN THE PATIENT DESCRIBES THE PAIN... THE PATIENT DESCRIBES THE PAIN... FALL RISK SCREENING: SCREENING :NO FALLS REPORTED IN THE LAST YEAR CURRENT MEDICATIONS TAKING VITAMIN B-12 1000 MCG INJECTION INJECTION IM ONCE A MONTH TAKING LOMOTIL 2.5-0.025 MG TABLET 8 TABLETS ORALLY TWICE DAILY NEEDED TAKING VITAMIN D (ERGOCALCIFEROL) 01747 UNIT CAPSULE 1 CAPSULE ORALLY ONCE A WEEK TAKING BACLOFEN 20 MG TABLET DIRECTED ORALLY 1 AT AM, 1/2 MID AM, 1/2 MID AFTERNOON, 1 AT BEDTIME TAKING MULTI COMPLETE - CAPSULE DIRECTED ORALLY TAKING TIZANIDINE HCL 4 MG TABLET 1 TABLET ORALLY EVERY 6 HRS TAKING OXYCODONE HCL 20 MG TABLET 1 TABLET ORALLY EVERY 4 HOURS NEEDED, MAX DAILY DOSE 5 TAKING TYLENOL WITH CODEINE #4 300-60 MG TABLET 1 TABLET NEEDED ORALLY EVERY 6 HRS PRN PAIN MDD=4 TAKING SOMA 350 MG TABLET 1 TABLET NEEDED ORALLY FOUR TIMES DAILY MDD4 NOT-TAKING CALCIUM 600 MG TABLET 1 TABLET ORALLY DAILY NOT-TAKING FERROUS SULFATE 1 TABLET ORALLY ONCE A DAY MEDICATION LIST REVIEWED AND RECONCILED WITH THE PATIENT PAST MEDICAL HISTORY CHRONES, SHORTENING OF THE BOWEL CHRONIC PAIN- SEES [facility] PAIN MANAGEMENT ALLERGIES REMICADE: ANAPHYLACTIC SHOCK MP 6: LIVER SHUTS DOWN LATEX: PULLS YOUR SKIN OFF PREDNISONE: SWELLING NEURONTIN: HAIR FALLING OUT PENTASA: HEADACHE GABAPENTIN: HAIR FELL OUT - SIDE EFFECTS - ONSET DATE 06/22/2018 SURGICAL HISTORY ABDOMINAL SURGERIES (5) BACK SURGERY KNEE SURGERY (LUMP REMOVED -LEFT KNEE) TONSILLECTOMY FAMILY HISTORY FATHER: , DIAGNOSED WITH CANCER MOTHER: , CANCER 3 BROTHER(S) , 3 SISTER(S) - HEALTHY. FATHER - OAT CELL CARCINOMA, MOTHER - LIVER CANCER, SISTER - OF [place]. SOCIAL HISTORY GENERAL: TOBACCO USE ARE YOU A: NONSMOKER. DIET: REGULAR. LANGUAGE LANGUAGES SPOKEN:GREEK NEW PATIENT PAIN DIARY FROM 0-10, WHAT LEVEL IS YOUR PAIN TODAY?5.5 RECREATIONAL DRUG USE DRUG USE?NO EXERCISE: WALKS, , DAILY. LEARNING BARRIERS / SPECIAL NEEDS ORIENTED TO PLAN OF CARE: PATIENT, PAIN MANAGEMENT PATIENT, ORIENTED TO PLAN OF CARE: PATIENT, PAIN MANAGEMENT PATIENT. PAIN CLINIC PFS, CLERGY, PUBLIC HEALTH REFERRALS PFS REFERRAL NEEDED?NO CLERGY REFERRAL NEEDED?NO PUBLIC HEALTH REFERRAL NEEDED?NO WAS THE PROVIDER NOTIFIED OF ANY PERTINENT INFO?YES HAS THE PATIENT BEEN EDUCATED REGARDING HIS/HER PLAN OF CARE?YES HAS THE PATIENT BEEN EDUCATED REGARDING PAIN, THE RISK FOR PAIN, THE IMPORTANCE OF EFFECTIVE PAIN MANAGEMENT, AND THE PAIN ASSESSMENT PROCESS?YES LATEX QUESTIONNAIRE LATEX ALLERGY : HAVE YOU EVER DEVELOPED ANY TYPE OF REACTION AFTER HANDLING LATEX PRODUCTS SUCH RUBBER GLOVES, CONDOMS, DIAPHRAGMS, BALLOONS, SOCKS, OR UNDERWEAR?YES - PLEASE INDICATE :OTHER (DOCUMENT IN NOTES) TAPE LATEX ALLERGY : HAVE YOU EVER DEVELOPED ANY TYPE OF REACTION DURING OR AFTER DENTAL APPOINTMENT, VAGINAL/RECTAL EXAMINATION, SURGICAL PROCEDURE, OR ANY OTHER EXPOSURE?NO LATEX RISK : HAVE YOU EVER HAD ANY DIFFICULTY BREATHING OR HIVES AFTER EATING OR HANDLING ANY FRUITS, OR VEGETABLES; SUCH KIWI, BANANAS, STONE FRUITS, OR CHESTNUTSNO LATEX RISK : DO YOU HAVE A PREVIOUS PERSONAL HISTORY OF MORE THAN NINE SURGERIES, SPINA BIFIDA, OR REPEATED CATHERIZATIONS? NO LATEX RISK : ARE YOU FREQUENTLY EXPOSED TO LATEX PRODUCTS IN YOUR OCCUPATION?NO DATE ASKED : 10/04/2018 CAFFEINE CAFFEINE USE?YES HOW OFTEN AND HOW MUCH? 1-2 CUPS PER DAY ADVANCE DIRECTIVE HEALTH CARE PROXY? YES, NAME OF HCP MOE MAK, CONTACT # FOR HCP [phone], DO YOU HAVE A COPY WITH YOU? NO - STATES HAS ALREADY BROUGHT COPY IN TO HOSPITAL, DO YOU HAVE A DNR? NO, WOULD YOU LIKE MORE INFORMATION? YES, LIVING WILL? NO, WOULD YOU LIKE MORE INFORMATION? 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 SAME HCP. ANABAPTISM [id number] BAHAI ALCOHOL SCREENING DID YOU HAVE A DRINK CONTAINING ALCOHOL IN THE PAST YEAR?NO POINTS0 INTERPRETATIONNEGATIVE REVIEWED WITH PATIENT 01/12/18 0956 JSREVIEWED WITH PT 06/22/18 1028 BV. HOSPITALIZATION/MAJOR DIAGNOSTIC PROCEDURE SURGERIES REVIEW OF SYSTEMS REVIEWED BY: PROVIDER: VINI NULL . CONSTITUTIONAL: ANY CHANGE IN YOUR MEDICAL CONDITION? NO . CHILLS NO . FEVER NO . INFECTION: DO YOU HAVE NEW INFECTIONS? NO . DO YOU HAVE HISTORY OF MRSA? NO . MUSCULOSKELETAL: ANY NEW PATTERNS OF PAIN OR NUMBNESS? NO . GASTROENTEROLOGY: ANY NEW CHANGE IN BOWEL CONTROL? NO . GENITOURINARY: ANY NEW CHANGE IN BLADDER CONTROL? NO . IS THERE A CHANCE YOU COULD BE ? NO . HEMATOLOGY/LYMPH: DO YOU TAKE ANY BLOOD THINNERS? (FOR EXAMPLE- COUMADIN, PLAVIX, AGGRENOX, PLATEL, PRADAXA, OR XARELTO) NO . WHEN WAS YOUR LAST DOSE? DATE: TIME: . NEUROLOGY: HAVE YOU FALLEN IN THE PAST 12 MONTHS? NO . ANY NEW EXTREMITY NUMBNESS OR WEAKNESS? NO . CARDIOLOGY: DO YOU HAVE A PACEMAKER OR DEFIBRILLATOR? NO . RESPIRATORY: HAVE YOU BEEN SICK IN THE PAST WEEK? NO . FEVER NO . FLU LIKE SYMPTOMS? NO . COUGH NO . INTEGUMENTARY: DO YOU HAVE ANY RASHES OR OPEN SORES? NO . ALLERGIC/IMMUNO: ARE YOU ALLERGIC TO IV DYE? NO . ANY NEW ALLERGIES? NO . PSYCHIATRIC: DO YOU HAVE THOUGHTS OF HURTING YOURSELF OR SOMEONE ELSE? NO . ARE YOU ABUSED, NEGLECTED, OR IN AN UNSAFE ENVIRONMENT? NO . ENDOCRINOLOGY: ARE YOU DIABETIC? NO . OTHER: DO YOU NEED ANY PRESCRIPTIONS? YES, OXYCODONE . IF YES, PLEASE LIST: ____ . ANY NEW PROBLEMS WITH YOUR MEDICATIONS? NO . WHEN DID YOU LAST EAT? ____ . WHEN DID YOU LAST DRINK? ____ . WHAT DID YOU LAST DRINK? ____ . NAME OF PERSON DRIVING YOU HOME? ____ . DO YOU HAVE ANY OTHER QUESTIONS OR CONCERNS NO . VITAL SIGNS WT 128.4 LBS, HT 66 IN, BMI 20.72 INDEX, BP 132/76 MM HG, HR 81 /MIN, RR 18 /MIN, TEMP 98.4 F, OXYGEN SAT % 100%, SAFE IN ENV? (Y/N) Y, NA INITIALS AW 1317, REVIEWED BY: DS. EXAMINATION GENERAL EXAMINATION: GENERALAWAKE,ALERT ,PLEAASANT . PSYCHAFFECT NORMAL . LUNGS:LUNG BENJAMIN ARE CLEAR TO AUSCULTATION BILATERALLY. GOOD MOVEMENT OF AIR . HEART:S1, S2 IN A REGULAR RATE AND RHYTHM. NO SIGNIFICANT MURMURS, RUBS OR GALLOPS NOTED . ASSESSMENTS LUMBAR POST-LAMINECTOMY SYNDROME - M96.1 (PRIMARY) CHRONIC PRESCRIPTION OPIATE USE - Z79.899 INFLAMMATORY ARTHROPATHY - M19.90 TREATMENT LUMBAR POST-LAMINECTOMY SYNDROME CONTINUE BACLOFEN TABLET, 20 MG, DIRECTED, ORALLY, 1 AT AM, 1/2 MID AM, 1/2 MID AFTERNOON, 1 AT BEDTIME REFILL TIZANIDINE HCL TABLET, 4 MG, 1 TABLET, ORALLY, EVERY 6 HRS, 30 DAY(S), 120 TABLET, REFILLS 2 REFILL OXYCODONE HCL TABLET, 20 MG, 1 TABLET, ORALLY, EVERY 4 HOURS NEEDED, MAX DAILY DOSE 5, 30 DAY(S), 150, REFILLS 0 REFILL TYLENOL WITH CODEINE #4 TABLET, 300-60 MG, 1 TABLET NEEDED, ORALLY, EVERY 6 HRS PRN PAIN MDD=4, 30 DAY(S), 120, REFILLS 4 REFILL SOMA TABLET, 350 MG, 1 TABLET NEEDED, ORALLY, FOUR TIMES DAILY MDD4, 30 DAYS, 120, REFILLS 2 NOTES: ISTOP REGISTRY REVIEWED AND DEMONSTRATES COMPLLIANCE. (REF # ) BRINGS IN MEDICATIONS WHICH IS APPROPRIATE FOR WHAT WAS DISPENSED. RECENT URINE TOXICOLOGY REVIEWED. NO UNAUTHORIZED MEDICATIONS. NO ILLICIT SUBSTANCES AND PRESCRIBED MEDICATIONS WERE PRESENT. , RISKS AND BENEFITS OF NARCOTIC/OPIOD MEDICATIONS WERE REVIEWED WITH PATIENT - THIS INCLUDES BUT IS NOT LIMITED TO RISK OF DEPENDANCE/DEVELOPMENT OF ADDICTION, MOOD DISTURBANCE AND DEPRESSION, OSTEOPOROSIS, HORMONAL AND LABIDAL CHANGES, RESPIRATORY DEPRESSION AND . PATIENT IS ADVISED NOT TO DRIVE OR DRINK ALCOHOL WHILE ON THESE MEDICATIONS. PROCEDURE CODES FA211 ESTABILISHED PATIENT [facility] CHARGE DISPOSITION & COMMUNICATION FOLLOW UP 3 MONTHS (REASON: MED MGMNT) ELECTRONICALLY SIGNED BY TENNILLE PRICE ON 10/15/2018 AT 11:30 AM EDT DISCLAIMER : THIS IS A VISIT SUMMARY EXTRACTED FROM THE [employer] CHART. IT IS NOT A COPY OF THE [employer] PROGRESS NOTE. RENEED
== END ==
LOC: M PAIN 13:15
PROVIDERS: ATTEND Nurse Practitioner Family
DX: M96.1 Postlaminectomy syndrome, not elsewhere classified (principal); Z79.899 Other long term (current) drug therapy; M19.90 Unspecified osteoarthritis, unspecified site; K50.90 Crohn's disease, unspecified, without complications; Z79.891 Long term (current) use of opiate analgesic; Z88.8 Allergy status to other drugs, medicaments and biological substances; Z91.040 Latex allergy status

== ENCOUNTER → 2019-02-28 | Outpatient (CLI) | payer OTHER, MEDICAID ==
--- NOTE | 2019-03-02 02:17 | ECWPNPC ---
PATIENT NAME: MATTY PERSON : 1960 GENDER: FEMALE VISIT DATE: 02/28/2019 DISCHARGE DATE: 02/28/19 1446 VISIT LOCKED DATE TIME: PHYSICIAN: FLORINDA RILEY PHYSICIAN PAGER NO: INACTIVE RESOURCE: FLORINDA RILEY REASON FOR APPOINTMENT 1. MED MGMT HISTORY OF PRESENT ILLNESS HISTORY OF PRESENT ILLNESS: PAIN THE PATIENT DESCRIBES THE PAIN... 58-YEAR-OLD FEMALE IN FOR CHRONIC PAIN FOLLOW-UP. SHE RATES HER PAIN CURRENTLY AT A 5 OUT OF 10 AND DESCRIBES IT ACHING, BURNING, SHOOTING, AND TENDER. SHE FEELS HER MEDICATIONS ARE WORKING WELL AND DENIES MED SIDE EFFECTS AT THIS TIME. SHE DOES ADMIT TO INCREASED SCIATIC PAIN DOWN THE LEFT SIDE. FALL RISK SCREENING: SCREENING :NO FALLS REPORTED IN THE LAST YEAR CURRENT MEDICATIONS TAKING VITAMIN B-12 1000 MCG INJECTION INJECTION IM ONCE A MONTH TAKING LOMOTIL 2.5-0.025 MG TABLET 8 TABLETS ORALLY TWICE DAILY NEEDED TAKING VITAMIN D (ERGOCALCIFEROL) 01831 UNIT CAPSULE 1 CAPSULE ORALLY ONCE A WEEK TAKING MULTI COMPLETE - CAPSULE DIRECTED ORALLY TAKING TIZANIDINE HCL 4 MG TABLET 1 TABLET ORALLY EVERY 6 HRS TAKING SOMA 350 MG TABLET 1 TABLET NEEDED ORALLY FOUR TIMES DAILY MDD4 TAKING BACLOFEN 20 MG TABLET DIRECTED ORALLY 1 AT AM, 1/2 MID AM, 1/2 MID AFTERNOON, 1 AT BEDTIME TAKING TYLENOL WITH CODEINE #4 300-60 MG TABLET 1 TABLET NEEDED ORALLY EVERY 6 HRS PRN PAIN MDD=4 TAKING OXYCODONE HCL 20 MG TABLET 1 TABLET ORALLY EVERY 4 HOURS NEEDED, MAX DAILY DOSE 5 NOT-TAKING CALCIUM 600 MG TABLET 1 TABLET ORALLY DAILY NOT-TAKING FERROUS SULFATE 1 TABLET ORALLY ONCE A DAY MEDICATION LIST REVIEWED AND RECONCILED WITH THE PATIENT PAST MEDICAL HISTORY CHRONES, SHORTENING OF THE BOWEL CHRONIC PAIN- SEES [facility] PAIN MANAGEMENT ALLERGIES REMICADE: ANAPHYLACTIC SHOCK MP 6: LIVER SHUTS DOWN LATEX: PULLS YOUR SKIN OFF PREDNISONE: SWELLING NEURONTIN: HAIR FALLING OUT PENTASA: HEADACHE GABAPENTIN: HAIR FELL OUT - SIDE EFFECTS - ONSET DATE 06/22/2018 SURGICAL HISTORY ABDOMINAL SURGERIES (5) BACK SURGERY KNEE SURGERY (LUMP REMOVED -LEFT KNEE) TONSILLECTOMY FAMILY HISTORY FATHER: , DIAGNOSED WITH OTHER MALIGNANT NEOPLASM OF UNSPECIFIED SITE MOTHER: , OTHER MALIGNANT NEOPLASM OF UNSPECIFIED SITE 3 BROTHER(S) , 3 SISTER(S) - HEALTHY. FATHER - OAT CELL CARCINOMA, MOTHER - LIVER CANCER, SISTER - OF [place]. SOCIAL HISTORY GENERAL: TOBACCO USE ARE YOU A: NONSMOKER. DIET: REGULAR. LANGUAGE LANGUAGES SPOKEN:MARSHALLESE NEW PATIENT PAIN DIARY FROM 0-10, WHAT LEVEL IS YOUR PAIN TODAY?5.5 RECREATIONAL DRUG USE DRUG USE?NO EXERCISE: WALKS, , DAILY. LEARNING BARRIERS / SPECIAL NEEDS ORIENTED TO PLAN OF CARE: PATIENT, PAIN MANAGEMENT PATIENT, ORIENTED TO PLAN OF CARE: PATIENT, PAIN MANAGEMENT PATIENT. PAIN CLINIC PFS, CLERGY, PUBLIC HEALTH REFERRALS PFS REFERRAL NEEDED?NO CLERGY REFERRAL NEEDED?NO PUBLIC HEALTH REFERRAL NEEDED?NO WAS THE PROVIDER NOTIFIED OF ANY PERTINENT INFO?YES HAS THE PATIENT BEEN EDUCATED REGARDING HIS/HER PLAN OF CARE?YES HAS THE PATIENT BEEN EDUCATED REGARDING PAIN, THE RISK FOR PAIN, THE IMPORTANCE OF EFFECTIVE PAIN MANAGEMENT, AND THE PAIN ASSESSMENT PROCESS?YES LATEX QUESTIONNAIRE LATEX ALLERGY : HAVE YOU EVER DEVELOPED ANY TYPE OF REACTION AFTER HANDLING LATEX PRODUCTS SUCH RUBBER GLOVES, CONDOMS, DIAPHRAGMS, BALLOONS, SOCKS, OR UNDERWEAR?YES - PLEASE INDICATE :OTHER (DOCUMENT IN NOTES) TAPE LATEX ALLERGY : HAVE YOU EVER DEVELOPED ANY TYPE OF REACTION DURING OR AFTER DENTAL APPOINTMENT, VAGINAL/RECTAL EXAMINATION, SURGICAL PROCEDURE, OR ANY OTHER EXPOSURE?NO LATEX RISK : HAVE YOU EVER HAD ANY DIFFICULTY BREATHING OR HIVES AFTER EATING OR HANDLING ANY FRUITS, OR VEGETABLES; SUCH KIWI, BANANAS, STONE FRUITS, OR CHESTNUTSNO LATEX RISK : DO YOU HAVE A PREVIOUS PERSONAL HISTORY OF MORE THAN NINE SURGERIES, SPINA BIFIDA, OR REPEATED CATHERIZATIONS? NO LATEX RISK : ARE YOU FREQUENTLY EXPOSED TO LATEX PRODUCTS IN YOUR OCCUPATION?NO DATE ASKED : 10/04/2018 CAFFEINE CAFFEINE USE?YES HOW OFTEN AND HOW MUCH? 1-2 CUPS PER DAY [facility] PROXY? YES, NAME OF HCP MOE MAK, CONTACT # FOR HCP [phone], DO YOU HAVE A COPY WITH YOU? NO - [facility] HAS ALREADY BROUGHT COPY IN TO HOSPITAL, DO YOU HAVE A DNR? NO, WOULD YOU LIKE MORE INFORMATION? YES, LIVING WILL? NO, WOULD YOU LIKE MORE INFORMATION? NO, POWER OF COLLAR BAND CREASER? YES, NAME OF POA? SAME HCP. HINDUISM [id number] BUDDHISM ALCOHOL SCREENING DID YOU HAVE A DRINK CONTAINING ALCOHOL IN THE PAST YEAR?NO POINTS0 INTERPRETATIONNEGATIVE REVIEWED WITH PATIENT 01/12/18 0956 JSREVIEWED WITH PT 06/22/18 1028 BVREVIEWED WITH PATIENT 02/28/19 1400 BV. HOSPITALIZATION/MAJOR DIAGNOSTIC PROCEDURE SURGERIES REVIEW OF SYSTEMS REVIEWED BY: PROVIDER: RENEE WALSH . CONSTITUTIONAL: ANY CHANGE IN YOUR MEDICAL CONDITION? NO . CHILLS NO . FEVER NO . INFECTION: DO YOU HAVE NEW INFECTIONS? NO . DO YOU HAVE HISTORY OF MRSA? NO . MUSCULOSKELETAL: ANY NEW PATTERNS OF PAIN OR NUMBNESS? NO . GASTROENTEROLOGY: ANY NEW CHANGE IN BOWEL CONTROL? NO . GENITOURINARY: ANY NEW CHANGE IN BLADDER CONTROL? NO . IS THERE A CHANCE YOU COULD BE ? NO . HEMATOLOGY/LYMPH: DO YOU TAKE ANY BLOOD THINNERS? (FOR EXAMPLE- COUMADIN, PLAVIX, AGGRENOX, PLATEL, PRADAXA, OR XARELTO) NO . WHEN WAS YOUR LAST DOSE? DATE: TIME: . NEUROLOGY: HAVE YOU FALLEN IN THE PAST 12 MONTHS? NO . ANY NEW EXTREMITY NUMBNESS OR WEAKNESS? NO . CARDIOLOGY: DO YOU HAVE A PACEMAKER OR DEFIBRILLATOR? NO . RESPIRATORY: HAVE YOU BEEN SICK IN THE PAST WEEK? NO . FEVER NO . FLU LIKE SYMPTOMS? NO . COUGH NO . INTEGUMENTARY: DO YOU HAVE ANY RASHES OR OPEN SORES? NO . ALLERGIC/IMMUNO: ARE YOU ALLERGIC TO IV DYE? NO . ANY NEW ALLERGIES? NO . PSYCHIATRIC: DO YOU HAVE THOUGHTS OF HURTING YOURSELF OR SOMEONE ELSE? NO . ARE YOU ABUSED, NEGLECTED, OR IN AN UNSAFE ENVIRONMENT? NO . ENDOCRINOLOGY: ARE YOU DIABETIC? NO . OTHER: DO YOU NEED ANY PRESCRIPTIONS? NO . IF YES, PLEASE LIST: ____ . ANY NEW PROBLEMS WITH YOUR MEDICATIONS? NO . WHEN DID YOU LAST EAT? ____ . WHEN DID YOU LAST DRINK? ____ . WHAT DID YOU LAST DRINK? ____ . NAME OF PERSON DRIVING YOU HOME? ____ . DO YOU HAVE ANY OTHER QUESTIONS OR CONCERNS NO . VITAL SIGNS WT 129.4 LBS, HT 66 IN, BMI 20.88 INDEX, BP 119/76 MM HG, HR 88 /MIN, RR 16 /MIN, TEMP 98.7 F, OXYGEN SAT % 99%, NA INITIALS SC 14:04, REVIEWED BY: BV. EXAMINATION GENERAL EXAMINATION: GENERALNO ACUTE DISTRESS, WELL NOURISHED AND HYDRATED. PSYCHAPPROPRIATE MOOD AND AFFECT . LUNGS:CLEAR TO AUSCULTATION BILATERALLY, NO WHEEZES, RHONCHI, RALES. HEART:NO MURMURS, REGULAR RATE AND RHYTHM. ASSESSMENTS LUMBAR POST-LAMINECTOMY SYNDROME - M96.1 (PRIMARY) TREATMENT LUMBAR POST-LAMINECTOMY SYNDROME CLINICAL NOTES: 58-YEAR-OLD FEMALE IN FOR CHRONIC PAIN FOLLOW-UP. DISCUSSED POTENTIAL SIJ WITH PATIENT TO HELP WITH CURRENT SCIATIC DISCOMFORT AND PATIENT DECLINES PROCEDURES AT THIS TIME. SHE WAS ENCOURAGED TO STRETCH, AND SHOULD HER PAIN WORSEN CALL THE CLINIC FOR POTENTIAL SIJ INJECTION. FURTHER RECOMMENDED CONTINUATION OF CURRENT MEDICATION REGIMEN WITH FOLLOW-UP IN 3 MONTHS. PATIENT HAS EXPRESSED UNDERSTANDING OF AND WAS IN AGREEMENT WITH TREATMENT PLAN. GIVEN TIME TO ASK QUESTIONS AND EXPRESS CONCERNS., ISTOP REGISTRY REVIEWED AND DEMONSTRATES COMPLLIANCE. (REF # [id number] ) BRINGS IN MEDICATIONS WHICH IS APPROPRIATE FOR WHAT WAS DISPENSED. RECENT URINE TOXICOLOGY REVIEWED. NO UNAUTHORIZED MEDICATIONS. NO ILLICIT SUBSTANCES AND PRESCRIBED MEDICATIONS WERE PRESENT. PROCEDURE CODES FA211 ESTABILISHED PATIENT [facility] CHARGE DISPOSITION & COMMUNICATION FOLLOW UP 3 MONTHS (REASON: BACK PAIN) ELECTRONICALLY SIGNED BY TENNILLE MILLER ON 03/01/2019 AT 12:33 PM EST DISCLAIMER : THIS IS A VISIT SUMMARY EXTRACTED FROM THE [employer] CHART. IT IS NOT A COPY OF THE [employer] PROGRESS NOTE. GRAHAM
== END ==
LOC: M PAIN 13:45
PROVIDERS: ATTEND Family Medicine
DX: M96.1 Postlaminectomy syndrome, not elsewhere classified (principal); Z88.8 Allergy status to other drugs, medicaments and biological substances; Z91.040 Latex allergy status; Z79.899 Other long term (current) drug therapy

== ENCOUNTER → 2019-06-11 | Outpatient (CLI) | payer OTHER, MEDICAID ==
--- NOTE | 2019-06-13 01:02 | ECWPNPC ---
PATIENT NAME: MATTY PERSON : 1960 GENDER: FEMALE VISIT DATE: 06/11/2019 DISCHARGE DATE: 06/11/19 1536 VISIT LOCKED DATE TIME: PHYSICIAN: FLORINDA RILEY PHYSICIAN PAGER NO: INACTIVE RESOURCE: FLORINDA RILEY REASON FOR APPOINTMENT 1. BACK PAIN HISTORY OF PRESENT ILLNESS HISTORY OF PRESENT ILLNESS: PAIN THE PATIENT DESCRIBES THE PAINDURING THE LAST MONTH SEVERITY - PAIN SCORE OF6/10 LOCATIONSNECK, MID BACK, LOWER BACK, LUMBAR QUALITYACHING , BURNING, SHARP, TENDER, SORE, SHOOTING DURATIONCONTINUOUS, AWAKENS FROM SLEEEP 59-YEAR-OLD FEMALE IN FOR CHRONIC PAIN FOLLOW-UP. SHE RATES HER PAIN CURRENTLY AT A 5-6 OUT OF 10 AND DESCRIBES IT ACHING, BURNING, SORE, TENDER, SHARP, AND SHOOTING. FALL RISK SCREENING: SCREENING :NO FALLS REPORTED IN THE LAST YEAR CURRENT MEDICATIONS TAKING VITAMIN B-12 1000 MCG INJECTION INJECTION IM ONCE A MONTH TAKING LOMOTIL 2.5-0.025 MG TABLET 8 TABLETS ORALLY TWICE DAILY NEEDED TAKING VITAMIN D (ERGOCALCIFEROL) 03471 UNIT CAPSULE 1 CAPSULE ORALLY ONCE A WEEK TAKING MULTI COMPLETE - CAPSULE DIRECTED ORALLY TAKING SOMA 350 MG TABLET 1 TABLET NEEDED ORALLY FOUR TIMES DAILY MDD4 TAKING TIZANIDINE HCL 4 MG TABLET 1 TABLET ORALLY EVERY 6 HRS TAKING BACLOFEN 20 MG TABLET DIRECTED ORALLY 1 AT AM, 1/2 MID AM, 1/2 MID AFTERNOON, 1 AT BEDTIME TAKING TYLENOL WITH CODEINE #4 300-60 MG TABLET 1 TABLET NEEDED ORALLY EVERY 6 HRS PRN PAIN MDD=4 TAKING OXYCODONE HCL 20 MG TABLET 1 TABLET ORALLY EVERY 4 HOURS NEEDED, MAX DAILY DOSE 5 NOT-TAKING CALCIUM 600 MG TABLET 1 TABLET ORALLY DAILY NOT-TAKING FERROUS SULFATE 1 TABLET ORALLY ONCE A DAY MEDICATION LIST REVIEWED AND RECONCILED WITH THE PATIENT PAST MEDICAL HISTORY CHRONES, SHORTENING OF THE BOWEL CHRONIC PAIN- SEES [facility] PAIN MANAGEMENT ALLERGIES REMICADE: ANAPHYLACTIC SHOCK MP 6: LIVER SHUTS DOWN LATEX: PULLS YOUR SKIN OFF PREDNISONE: SWELLING NEURONTIN: HAIR FALLING OUT PENTASA: HEADACHE GABAPENTIN: HAIR FELL OUT - SIDE EFFECTS - ONSET DATE 06/22/2018 SURGICAL HISTORY ABDOMINAL SURGERIES (5) BACK SURGERY KNEE SURGERY (LUMP REMOVED -LEFT KNEE) TONSILLECTOMY FAMILY HISTORY FATHER: , DIAGNOSED WITH OTHER MALIGNANT NEOPLASM OF UNSPECIFIED SITE MOTHER: , OTHER MALIGNANT NEOPLASM OF UNSPECIFIED SITE 3 BROTHER(S) , 3 SISTER(S) - HEALTHY. FATHER - OAT CELL CARCINOMA, MOTHER - LIVER CANCER, SISTER - OF [place]. SOCIAL HISTORY GENERAL: TOBACCO USE ARE YOU A: NONSMOKER. DIET: REGULAR. LANGUAGE LANGUAGES SPOKEN:CHINESE NEW PATIENT PAIN DIARY FROM 0-10, WHAT LEVEL IS YOUR PAIN TODAY?5.5 RECREATIONAL DRUG USE DRUG USE?NO EXERCISE: WALKS, , DAILY. LEARNING BARRIERS / SPECIAL NEEDS ORIENTED TO PLAN OF CARE: PATIENT, PAIN MANAGEMENT PATIENT, ORIENTED TO PLAN OF CARE: PATIENT, PAIN MANAGEMENT PATIENT. PAIN CLINIC PFS, CLERGY, PUBLIC HEALTH REFERRALS PFS REFERRAL NEEDED?NO CLERGY REFERRAL NEEDED?NO PUBLIC HEALTH REFERRAL NEEDED?NO WAS THE PROVIDER NOTIFIED OF ANY PERTINENT INFO?YES HAS THE PATIENT BEEN EDUCATED REGARDING HIS/HER PLAN OF CARE?YES HAS THE PATIENT BEEN EDUCATED REGARDING PAIN, THE RISK FOR PAIN, THE IMPORTANCE OF EFFECTIVE PAIN MANAGEMENT, AND THE PAIN ASSESSMENT PROCESS?YES LATEX QUESTIONNAIRE LATEX ALLERGY : HAVE YOU EVER DEVELOPED ANY TYPE OF REACTION AFTER HANDLING LATEX PRODUCTS SUCH RUBBER GLOVES, CONDOMS, DIAPHRAGMS, BALLOONS, SOCKS, OR UNDERWEAR?YES LATEX ALLERGY : HAVE YOU EVER DEVELOPED ANY TYPE OF REACTION DURING OR AFTER DENTAL APPOINTMENT, VAGINAL/RECTAL EXAMINATION, SURGICAL PROCEDURE, OR ANY OTHER EXPOSURE?NO - PLEASE INDICATE :OTHER (DOCUMENT IN NOTES) TAPE DATE ASKED : 10/04/2018 LATEX RISK : HAVE YOU EVER HAD ANY DIFFICULTY BREATHING OR HIVES AFTER EATING OR HANDLING ANY FRUITS, OR VEGETABLES; SUCH KIWI, BANANAS, STONE FRUITS, OR CHESTNUTSNO LATEX RISK : DO YOU HAVE A PREVIOUS PERSONAL HISTORY OF MORE THAN NINE SURGERIES, SPINA BIFIDA, OR REPEATED CATHERIZATIONS? NO LATEX RISK : ARE YOU FREQUENTLY EXPOSED TO LATEX PRODUCTS IN YOUR OCCUPATION?NO CAFFEINE CAFFEINE USE?YES HOW OFTEN AND HOW MUCH? 1-2 CUPS PER DAY [facility] PROXY? YES, NAME OF HCP MOE MAK, CONTACT # FOR HCP [phone], DO YOU HAVE A COPY WITH YOU? NO - STATES HAS ALREADY BROUGHT COPY IN TO HOSPITAL, DO YOU HAVE A DNR? NO, WOULD YOU LIKE MORE INFORMATION? YES, LIVING WILL? NO, WOULD YOU LIKE MORE INFORMATION? NO, POWER OF DIVORCE MEDIATOR? YES, NAME OF POA? SAME HCP. VOODOO [id number] SHINTO ALCOHOL SCREENING DID YOU HAVE A DRINK CONTAINING ALCOHOL IN THE PAST YEAR?NO POINTS0 INTERPRETATIONNEGATIVE HOSPITALIZATION/MAJOR DIAGNOSTIC PROCEDURE SURGERIES REVIEW OF SYSTEMS REVIEWED BY: PROVIDER: RENEE WALSH . CONSTITUTIONAL: ANY CHANGE IN YOUR MEDICAL CONDITION? NO . CHILLS NO . FEVER NO . INFECTION: DO YOU HAVE NEW INFECTIONS? NO . DO YOU HAVE HISTORY OF MRSA? NO . MUSCULOSKELETAL: ANY NEW PATTERNS OF PAIN OR NUMBNESS? YES, NUMBNESS WORSE IN THE LEFT LEG . GASTROENTEROLOGY: ANY NEW CHANGE IN BOWEL CONTROL? NO . GENITOURINARY: ANY NEW CHANGE IN BLADDER CONTROL? NO . IS THERE A CHANCE YOU COULD BE ? NO . HEMATOLOGY/LYMPH: DO YOU TAKE ANY BLOOD THINNERS? (FOR EXAMPLE- COUMADIN, PLAVIX, AGGRENOX, PLATEL, PRADAXA, OR XARELTO) NO . WHEN WAS YOUR LAST DOSE? DATE: TIME: . NEUROLOGY: HAVE YOU FALLEN IN THE PAST 12 MONTHS? YES, TRIPPED OVER ICE 2 MONTHS AGO . ANY NEW EXTREMITY NUMBNESS OR WEAKNESS? NO . CARDIOLOGY: DO YOU HAVE A PACEMAKER OR DEFIBRILLATOR? NO . RESPIRATORY: HAVE YOU BEEN SICK IN THE PAST WEEK? NO . FEVER NO . FLU LIKE SYMPTOMS? NO . COUGH NO . INTEGUMENTARY: DO YOU HAVE ANY RASHES OR OPEN SORES? NO . ALLERGIC/IMMUNO: ARE YOU ALLERGIC TO IV DYE? NO . ANY NEW ALLERGIES? NO . PSYCHIATRIC: DO YOU HAVE THOUGHTS OF HURTING YOURSELF OR SOMEONE ELSE? NO . ARE YOU ABUSED, NEGLECTED, OR IN AN UNSAFE ENVIRONMENT? NO . ENDOCRINOLOGY: ARE YOU DIABETIC? NO . OTHER: DO YOU NEED ANY PRESCRIPTIONS? YES, BACLOFEN, TYLENOL #4, OXYCODONE . IF YES, PLEASE LIST: ____ . ANY NEW PROBLEMS WITH YOUR MEDICATIONS? NO . WHEN DID YOU LAST EAT? ____ . WHEN DID YOU LAST DRINK? ____ . WHAT DID YOU LAST DRINK? ____ . NAME OF PERSON DRIVING YOU HOME? ____ . DO YOU HAVE ANY OTHER QUESTIONS OR CONCERNS NO . VITAL SIGNS WT 124 LBS, HT 66 IN, BMI 20.01 INDEX, BP 132/77 MM HG, HR 90 /MIN, RR 18 /MIN, TEMP 98.2 F, OXYGEN SAT % 97, SAFE IN ENV? (Y/N) YES, REVIEWED BY: YARELIS JONES LPN. EXAMINATION GENERAL EXAMINATION: GENERALNO ACUTE DISTRESS, WELL NOURISHED AND HYDRATED. PSYCHAPPROPRIATE MOOD AND AFFECT . LUNGS:CLEAR TO AUSCULTATION BILATERALLY, NO WHEEZES, RHONCHI, RALES. HEART:NO MURMURS, REGULAR RATE AND RHYTHM. ASSESSMENTS LUMBAR POST-LAMINECTOMY SYNDROME - M96.1 (PRIMARY) TREATMENT LUMBAR POST-LAMINECTOMY SYNDROME CLINICAL NOTES: 59-YEAR-OLD FEMALE IN FOR CHRONIC PAIN FOLLOW-UP. GIVEN PRESENTING SYMPTOMS AND RESULTS OF PHYSICAL EXAMINATION RECOMMENDED CONTINUATION OF CURRENT MEDICATION REGIMEN WITH FOLLOW-UP IN 3 MONTHS. PATIENT HAS EXPRESSED UNDERSTANDING OF AND WAS IN AGREEMENT WITH TREATMENT PLAN. GIVEN TIME TO ASK QUESTIONS AND EXPRESS CONCERNS., ISTOP REGISTRY REVIEWED AND DEMONSTRATES COMPLLIANCE. (REF # [id number] ) BRINGS IN MEDICATIONS WHICH IS APPROPRIATE FOR WHAT WAS DISPENSED. RECENT URINE TOXICOLOGY REVIEWED. NO UNAUTHORIZED MEDICATIONS. NO ILLICIT SUBSTANCES AND PRESCRIBED MEDICATIONS WERE PRESENT. PROCEDURE CODES FA211 ESTABILISHED PATIENT [facility] CHARGE DISPOSITION & COMMUNICATION FOLLOW UP 3 MONTHS (REASON: BACK PAIN) ELECTRONICALLY SIGNED BY TENNILLE MILLER ON 06/12/2019 AT 01:14 PM EDT DISCLAIMER : THIS IS A VISIT SUMMARY EXTRACTED FROM THE [employer] CHART. IT IS NOT A COPY OF THE [employer] PROGRESS NOTE. GRAHAM
== END ==
LOC: M PAIN 14:30
PROVIDERS: ATTEND Family Medicine
DX: M96.1 Postlaminectomy syndrome, not elsewhere classified (principal); Z79.891 Long term (current) use of opiate analgesic; Z79.899 Other long term (current) drug therapy; Z88.8 Allergy status to other drugs, medicaments and biological substances; Z91.040 Latex allergy status

== ENCOUNTER → 2021-06-10 | Outpatient (CLI) | payer MEDICAID, OTHER | LOC: M LABSMTC 09:25 | PROVIDERS: ATTEND Anesthesiology | DX: Z01.818 Encounter for other preprocedural examination (principal); Z20.822 Contact with and (suspected) exposure to COVID-19 ==

== ENCOUNTER → 2021-06-10 | Outpatient (CLI) | payer OTHER | LOC: M EKG 09:43 | PROVIDERS: ATTEND Anesthesiology | DX: Z01.810 Encounter for preprocedural cardiovascular examination (principal) ==

== ENCOUNTER 2021-06-15 10:41 | Day surgery (SDC) | payer OTHER ==
[~2021-06-15] VITALS: Ht 167.6 cm; Wt 62.6 kg
[~2021-06-15 10:41] MED LIST changes: +LR 1,000 ML IV ONE
[2021-06-15] MEDS ORDERED: MIDAZOLAM INJ 2MG/2ML VIAL (J2250 PER 1MG) As Ordered ONE (10:48)
[2021-06-15] MEDS ORDERED: fentaNYL 100 MCG/2 ML INJECTION As Ordered ONE (10:48)
[2021-06-15] MEDS ORDERED: propofoL 200 MG/20 ML VIAL As Ordered ONE (10:49)
[2021-06-15] MEDS ORDERED: LIDOCAINE 2% 100MG/5ML SDV (FOR ANES.) As Ordered ONE (10:49)
[2021-06-15] MEDS ORDERED: BUPIVACAINE HCL 0.25% 10ML VIAL As Ordered ONE (11:46)
[2021-06-15] MEDS ORDERED: LIDOCAINE W/EPINEPHRINE 1% 20ML VIAL As Ordered ONE (11:46)
[2021-06-15 13:09] VITALS: BP 112/69
== END 2021-06-15 13:44 | disposition home or self-care (01) ==
LOC: M OPP 10:41
PROVIDERS: ATTEND Surgery
DX: D17.1 Benign lipomatous neoplasm of skin and subcutaneous tissue of trunk (principal)
CPT/HCPCS: 21931; 88304; J2250; J3010

== ENCOUNTER 2021-09-23 11:32 | Emergency (ER) | payer OTHER ==
[~2021-09-23] VITALS: Ht 167.6 cm; Wt 61.4 kg
[~2021-09-23 11:32] MED LIST changes: -LR 1,000 ML IV ONE
[2021-09-23] MEDS ORDERED: FLON27.5 NARES (13:17)
[2021-09-23] MEDS: diphenhydrAMINE 25MG CAP PO ONE (13:20)
[2021-09-23 13:30] VITALS: BP 128/75
[2021-09-24] MEDS ORDERED: FLUTISP (12:52)
[2021-09-24] MEDS ORDERED: BENA25CA4 PO (12:52)
[2021-09-24] MEDS ORDERED: PRED20TA PO (17:06)
[2021-09-24] MEDS ORDERED: BACT800T5 PO (17:06)
== END 2021-09-23 13:34 | disposition home or self-care (01) ==
LOC: M ED 11:32
DX: R21 Rash and other nonspecific skin eruption (principal); T78.40XA Allergy, unspecified, initial encounter; M81.0 Age-related osteoporosis without current pathological fracture; K50.90 Crohn's disease, unspecified, without complications; Z88.8 Allergy status to other drugs, medicaments and biological substances; Z87.19 Personal history of other diseases of the digestive system; Z98.890 Other specified postprocedural states; Z83.3 Family history of diabetes mellitus; Z82.49 Family history of ischemic heart disease and other diseases of the circulatory system; Z80.6 Family history of leukemia

== ENCOUNTER 2021-09-24 12:41 | Emergency (ER) | payer OTHER ==
[~2021-09-24] VITALS: Ht 167.6 cm; Wt 61.4 kg
[~2021-09-24 12:41] MED LIST changes: +FLON27.5 NARES
[2021-09-24] MEDS ORDERED: FLUTISP (12:52)
[2021-09-24] MEDS ORDERED: BENA25CA4 PO (12:52)
[2021-09-24 13:36] LABS: BASO % 0.5 % (0.0-1.0); EOS # 0.3 10^3/uL (0.0-0.5); EOS % 4.5 % (0.0-3.0); HEMATOCRIT 34.8 % (36.0-47.0); HEMOGLOBIN 11.4 g/dl (12.0-15.5); LYMPH # 2.1 10^3/uL (1.5-5.0); LYMPH % 37.4 % (24.0-44.0); MEAN CORPUSCULAR HEMOGLOBIN 32.8 pg (27.0-33.0); MEAN CORPUSCULAR HGB CONC 32.8 g/dl (32.0-36.5); MONO # 0.4 10^3/uL (0.0-0.8); NEUTROPHILS # 2.7 10^3/uL (1.5-8.5); NEUTROPHILS % 49.2 % (36.0-66.0); PLATELET COUNT, AUTOMATED 383 10^3/uL (150-450); RED BLOOD COUNT 3.48 10^6/uL (4.00-5.40); WHITE BLOOD COUNT 5.5 10^3/uL (4.0-10.0)
[2021-09-24 14:09] LABS: ERYTHROCYTE SEDIMENTATION RATE 26 mm/hr (0-30)
[2021-09-24] MEDS ORDERED: FAMOTIDINE 20MG/2ML VIAL IVP ONE (15:25)
[2021-09-24] MEDS ORDERED: methylPREDNISolone 125MG 2ML VIAL IV ONE (15:25)
[2021-09-24] MEDS ORDERED: BACT800T5 PO (17:06)
[2021-09-24] MEDS ORDERED: PRED20TA PO (17:06)
[2021-09-24 17:14] VITALS: BP 125/71
== END 2021-09-24 17:20 | disposition home or self-care (01) ==
LOC: M ED 12:41
DX: L03.114 Cellulitis of left upper limb (principal); G62.9 Polyneuropathy, unspecified; K50.919 Crohn's disease, unspecified, with unspecified complications; Z79.899 Other long term (current) drug therapy
CPT/HCPCS: 36415; 80047; 85025; 85652; 86140; 87040; 93971; 96374; 96375; 99284; J2930

== ENCOUNTER → 2021-10-29 | Outpatient (REF) | payer OTHER ==
[~2021-10-29] MED LIST changes: +BACT800T5 PO; +BENA25CA4 PO; +FLUTISP; +PRED20TA PO
== END ==
LOC: M LAB REF 20:20
PROVIDERS: ATTEND Physician Assistant Surgical
DX: K50.00 Crohn's disease of small intestine without complications (principal); R19.7 Diarrhea, unspecified; R10.12 Left upper quadrant pain

== ENCOUNTER 2022-02-21 08:29 | Emergency (ER) | payer OTHER ==
[~2022-02-21] VITALS: Ht 167.6 cm; Wt 65.4 kg
[2022-02-21 08:30] VITALS: BP 120/66
[2022-02-21] MEDS ORDERED: LIDOCAINE 2% MDV 20ML VIAL SC ONE (09:55)
== END 2022-02-21 11:04 | disposition home or self-care (01) ==
LOC: M ED 08:29
DX: S61.511A Laceration without foreign body of right wrist, initial encounter (principal); W01.118A Fall on same level from slipping, tripping and stumbling with subsequent striking against other sharp object, initial encounter; Y92.009 Unspecified place in unspecified non-institutional (private) residence as the place of occurrence of the external cause; S63.92XA Sprain of unspecified part of left wrist and hand, initial encounter; M81.0 Age-related osteoporosis without current pathological fracture; Z88.8 Allergy status to other drugs, medicaments and biological substances; Z79.899 Other long term (current) drug therapy

== ENCOUNTER 2022-08-02 09:30 | Emergency (ER) | payer OTHER ==
[~2022-08-02] VITALS: Ht 167.6 cm; Wt 63.3 kg
[~2022-08-02 09:30] MED LIST changes: +FLUT50SP17; -FLUTISP
[2022-08-02] MEDS ORDERED: IBUP-1022 PO (11:53)
[2022-08-02] MEDS ORDERED: HYDR-3713 PO (11:53)
[2022-08-02 11:55] VITALS: BP 132/69
== END 2022-08-02 12:09 | disposition home or self-care (01) ==
LOC: M ED 09:30
DX: S20.211A Contusion of right front wall of thorax, initial encounter (principal); S50.01XA Contusion of right elbow, initial encounter; W18.39XA Other fall on same level, initial encounter; Y92.009 Unspecified place in unspecified non-institutional (private) residence as the place of occurrence of the external cause; Y93.K1 Activity, walking an animal; Z88.8 Allergy status to other drugs, medicaments and biological substances

== ENCOUNTER 2024-08-04 12:06 | Emergency (ER) | payer OTHER ==
[~2024-08-04] VITALS: Ht 167.6 cm; Wt 66.5 kg
[~2024-08-04 12:06] MED LIST changes: -FLUT50SP17; +FLUTISP; +HYDR-3713 PO; +IBUP-1022 PO
[2024-08-04 12:09] VITALS: TEMP 98.6
[2024-08-04 13:46] VITALS: BP 113/71; O2SAT 99
== END 2024-08-04 13:47 | disposition home or self-care (01) ==
LOC: M ED 12:06
DX: S63.502A Unspecified sprain of left wrist, initial encounter (principal); X58.XXXA Exposure to other specified factors, initial encounter; Y92.009 Unspecified place in unspecified non-institutional (private) residence as the place of occurrence of the external cause; Y93.89 Activity, other specified; Y99.9 Unspecified external cause status; K50.90 Crohn's disease, unspecified, without complications; Z88.8 Allergy status to other drugs, medicaments and biological substances